=== PATIENT | female | born 1980 | race Caucasian/White ===

== ENCOUNTER 2016-10-29 21:22 | Inpatient (IN) | payer OTHER ==
[~2016-10-29] VITALS: Ht 160 cm; Wt 78.0 kg
[2016-10-29 21:51] VITALS: Ht 160 cm; Wt 78.0 kg
[2016-10-29 21:52] VITALS: BP 133/73; PULSE 97; RESP 19
[2016-10-29] MEDS ORDERED: IBUPROFEN 600 MG TAB PO PRN (22:00)
[2016-10-29] MEDS ORDERED: LACTATED RINGER'S 1,000 ML IV PRN (22:00)
[2016-10-29] MEDS ORDERED: BUTORPHANOL 2 MG INJ IV PRN (22:00)
[2016-10-29] MEDS ORDERED: OXYTOCIN 30 UNITS/LR 500 ML IV PRN (22:00)
[2016-10-29] MEDS ORDERED: OXYTOCIN 30 UNITS/LR 500 ML IV SCH (22:00)
[2016-10-29] MEDS ORDERED: METHYLERGONOVINE 0.2 MG INJ IM PRN (22:00)
[2016-10-29] MEDS ORDERED: MISOPROSTOL 200 MCG TAB PR PRN (22:00)
[2016-10-29] MEDS ORDERED: CARBOPROST 250 MCG INJ IM PRN (22:00)
[2016-10-29] MEDS ORDERED: LIDOCAINE 1% (MPF) 30 ML INJ INJ PRN (22:00)
--- NOTE | 2016-10-29 23:02 | HP ---
Date/Time of Note Date/Time of Note DATE: 10/29/16 TIME: 22:57 OB - History Hx of Present Free Text/Dictation 36 years old with care at [facility] and at 40 weeks and 3 days ( Post date), presented in active labor. records available. GBS negative,. uncomplicated course. History of x 3. 1 SAB, 1 TAB,1 Ectopic , s/p unilateral salpingectomy MAIDA: 10/25/2016 Estimated Due Date: Oct 25, 2016 : 7 Para: 3 Spontaneous : 1 Therapeutic : 1 Care: Good Care Obstetrical Complications: None Medical Complications: None Past Family/Social History * Past Medical, Surgical, Family and Obstetric Histories reviewed from chart. Blood Type: O+ Rubella: immune RPR/VDRL: Negative GBS Status: Negative HBsAG: Negative OB Admission Exam Vital Signs Vital Signs Vital Signs Date Time Temp Pulse Resp B/P Pulse Ox O2 Delivery O2 Flow Rate FiO2 10/29/16 21:52 98.1 97 19 133/73 Room Air Physical Exam HEENT: WNL Heart: Rhythm Normal Lungs: Clear Abdomen: WNL Extremities: Normal Cervical Dilatation: 4cm Effacement: 75% Station: -1 Membranes: Intact Heart Rate: 130's Accelerations: Accelerations Present Decelerations: No Decelerations Varibility: Moderate Intensity: Moderate OB Assessment/Plan Reason for admission: active labor Other Assessment: Post date GBS negative Desires Epidural Plan: Expectant Management Other plan: Admission Epidural for pain control Anticipate SARAH HENLEY MD Oct 29, 2016 23:02
--- NOTE | 2016-10-29 23:22 | TRIAGE ---
OB Triage Datetime Report Generated by CPN: 10/29/2016 23:22 Datetime: 10/29/2016 23:00 Labor Evaluation Frequency: 1.5-6 Monitor Mode: External Duration (sec)2399: 50-90 Quality: Mild Pattern: Normal: <= 5 Contractions in 10 Minutes Resting Tone [place]: Relaxed Heart Rate FHR Baseline Rate: 150 Monitor Mode: External US Variability: Moderate 6-25 bpm Accelerations: Prolonged Decelerations: None Category: Category I Datetime: 10/29/2016 22:00 Labor Evaluation Frequency: 1-6 Monitor Mode: External Duration (sec)2399: 40-90 Quality: Mild Pattern: Normal: <= 5 Contractions in 10 Minutes Resting Tone [place]: Relaxed Heart Rate FHR Baseline Rate: 135 Monitor Mode: External US Variability: Moderate 6-25 bpm Accelerations: 15X15 Decelerations: None Category: Category I Pain Assessment Pain Scale: 8 Pain Presence: Intermittent Pain Type: Cramping Pain Location: Abdomen Datetime: 10/29/2016 21:48 Membrane Status: Intact Datetime: 10/29/2016 21:36 Time of Arrival: 10/29/2016 21:18 EGA: 40.4 Arrived By: Wheelchair Arrived From: Home Chief Complaint: CONTRACTIONS Movement: Present Contractions: Regular Time Contractions Began: 10/29/2016 18:00 Contractions: Q3-5 Rupture of Membranes: Denies Vaginal Bleeding: None Vaginal Discharge: Denies Recent Sexual Intercouse: Denies Abdominal Trauma: Not Applicable Patient Complaints: Contractions Time Provider Notified: 10/29/2016 21:47 Provider Notified: ARDALAN Initial Plan: CEFM, SVE Datetime: 10/29/2016 21:26 Vaginal Exam Dilatation (cms): 3.5 Effacement (%): 80 Station: -1 Exam By: BE Vaginal Bleeding: None Cervix, Consistency: Soft Cervix, Position: Midposition Presentation 'A': Cephalic Datetime: 10/29/2016 21:25 Stage of : OB Triage Assessment Type: Triage Maternal Assessment Level of Consciousness: Fully Conscious DTR's/Clonus: DTRs 2+; No Clonus Headache: Denies Blurred Vision: No Respiratory Effort: Unlabored; Regular Rhythm; Equal Expansion Breath Sounds, Left: Clear and Equal Breath Sounds, Right: Clear and Equal Nausea/Vomiting: Denies RUQ Epigastric Pain: Denies Facial Edema: None Temperature Route: Axillary Fall Risk Assessment History of Falling: (0) No Secondary Diagnosis: (0) No Ambulatory Aid: (0) Bedrest/Nurse Assist IV Therapy: (0) No Gait: (0) Normal/Bedrest/Immobile Mental Status: (0) Oriented to Own Ability Fall Score: 0 Fall Risk Score Definition: No Risk: No action required Datetime: 10/26/2016 23:30 EGA: 40.1 Fall Score: 0 Fall Risk Score Definition: No Risk: No action required
[2016-10-29] MEDS: LACTATED RINGER'S 1,000 ML IV SCH (23:35)
[2016-10-29 23:59] LABS: INR 0.83; PROTIME 11.4 Sec (12.2-14.2); PT RATIO 0.9
[2016-10-30] VITALS (9 sets, daily range): BP systolic 94–121; BP diastolic 52–70; PULSE 63–88; RESP 18–20
[2016-10-30] LABS: PARTIAL THROMBOPLASTIN TIME 26.3 Sec (25.0-35.0)
[2016-10-30 00:33] LABS: BASOPHIL # 0.1 10^3/ul (0.0-0.1); BASOPHILS % 0.8 % (0.0-2.0); EOSINOPHILS # 0.1 10^3/ul (0.0-0.5); EOSINOPHILS % 0.6 % (0.0-7.0); HEMATOCRIT 30.9 % (37.0-47.0); LYMPHOCYTES # 2.1 10^3/ul (0.8-2.9); LYMPHOCYTES % 20.9 % (15.0-51.0); MEAN CORPUSCULAR HEMOGLOBIN 26.7 pg (29.0-33.0); MEAN CORPUSCULAR HGB CONC 32.5 g/dl (32.0-37.0); MEAN CORPUSCULAR VOLUME 82.3 fl (82.0-101.0); MEAN PLATELET VOLUME 10.9 fl (7.4-10.4); MONOCYTE # 0.6 10^3/ul (0.3-0.9); MONOCYTES % 5.7 % (0.0-11.0); NEUTROPHIL # 7.1 10^3/ul (1.6-7.5); PLATELET COUNT 231 10^3/UL (140-440); RED BLOOD COUNT 3.76 10^6/ul (4.20-5.40); RED CELL DISTRIBUTION WIDTH 14.6 % (11.5-14.5); UNCORRECTED WBC 9.9 10^3/ul (4.8-10.8); WHITE BLOOD COUNT 9.9 10^3/ul (4.8-10.8)
[2016-10-30 00:41] LABS: CONDITION 1; SUSPECT 1
[2016-10-30 00:42] LABS: LH ANALYZER COMMENTS 1
[2016-10-30] MEDS ORDERED: FENTAnyl 2MCG/ML-ROPIV 0.2% 100 ML ONE (02:01)
[2016-10-30] MEDS ORDERED: FENTAnyl 2MCG/ML-ROPIV 0.2% 100 ML BAG EPI SCH (03:00)
[2016-10-30] MEDS ORDERED: NALOXONE (0.4 MG/ML) INJ IV PRN (03:00)
[2016-10-30] MEDS: LACTATED RINGER'S 1,000 ML IV SCH ×2 (03:30→06:34)
[2016-10-30] MEDS: OXYTOCIN 30 UNITS/LR 500 ML IV SCH ×2 (07:52→08:15)
--- NOTE | 2016-10-30 07:54 | LDN ---
Date/Time of Note Date/Time of Note DATE: 10/30/16 TIME: 07:53 Delivery Summary Placenta Delivered: Spontaneously Meconium: none Perineum intact?: Yes Anesthesia type: Epidural Estimated blood loss: 200 Sponge & Needle done & correct: Yes Any foreign bodies felt in the: No Problems: Infant Delivery Information Sex Sex: male Apgars 1 Minute: 9 5 Minute: 9 Suctioning Nose & mouth suctioned at stewart: Yes Delee suction performed: Yes Umbilical Cord Umbilical cord with: 3 Vessels Cord presentations: no nuchal cord Cord Blood was obtained: Yes Mother & Baby Disposition Disposition Mom & Baby to Maternity; Good: Yes Baby to NICU: No GLADIS ARROYO M.D. Oct 30, 2016 07:54
--- NOTE | 2016-10-30 08:23 | LDN ---
Date/Time of Note Date/Time of Note DATE: 10/30/16 TIME: 08:17 Delivery Summary of a baby boy from oa position by dr oClunga ,shoulders delivered without difficulty rest of the baby,s body followed ,placenta spontaneous expulsion, inspected complete. Placenta Delivered: Spontaneously Meconium: none Perineum intact?: Yes Anesthesia type: Epidural Estimated blood loss: 200 Sponge & Needle done & correct: Yes All needle counts correct: Yes Any foreign bodies felt in the: No Problems: AMISH VILLASEÑOR MD Oct 30, 2016 08:23
--- NOTE | 2016-10-30 08:38 | DELSUM ---
Delivery Summary A-C Datetime Report Generated by CPN: 10/30/2016 08:37 DELIVERY PERSONNEL Operations Administrative Assistant: [place], May MATERNAL INFORMATION Delivery Anesthesia: Epidural Medications in Delivery: LR WITH 30 UNITS OF PITOCIN Estimated Blood Loss (ml): 200 Placenta Cultured: No Maternal Complications: None LABOR SUMMARY EDC: 10/25/2016 00:00 No. Babies in Womb: 1 Attempted: No Labor Anesthesia: Epidural LABOR INFORMATION Reason for Induction: Not Applicable Onset of Labor: 10/29/2016 18:00 Complete Dilatation: 10/30/2016 06:59 Oxytocin: N/A Group B Beta Strep: Negative Antibiotics # of Doses: 0 Antibiotics Time of Last Dose: 0 Steroids Given: None Reason Steroids Not Administered: Not Applicable MEMBRANES Membranes Rupture Method: Spontaneous Rupture of Membranes: 10/30/2016 03:40 Length of Rupture (hr): 4.07 Amniotic Fluid Color: Clear Amniotic Fluid Amount: Moderate Amniotic Fluid Odor: Normal STAGES OF LABOR Stage 1 hr: 12 Stage 1 min: 59 Stage 2 hr: 0 Stage 2 min: 45 Stage 3 hr: 0 Stage 3 min: 2 Total Time in Labor hr: 13 Total Time in Labor min: 46 VAGINAL DELIVERY Episiotomy: None Laceration Extension: N/A Laceration Type: None Laceration Repair: Not Applicable Initial Vag Sponge Count: 20 Final Vag Sponge Count: 20 Initial Vag Sharps Count: 1 Final Vag Sharps Count: 1 Sponge Count Correct: Yes Sharps Count Correct: Yes BABY A INFORMATION Infant Delivery Date/Time: 10/30/2016 07:44 Method of Delivery: Vaginal Born in Route : No : N/A Forceps: N/A Vacuum Extraction: N/A Shoulder Dystocia : No SHOULDER DYSTOCIA BABY A Infant Delivery Date/Time: 10/30/2016 07:44 PRESENTATION/POSITION BABY A Presentation: Cephalic Presentation: Cephalic Presentation: Cephalic Presentation: Cephalic Presentation: Cephalic Cephalic Presentation: Vertex Vertex Position: Left Occipital Anterior Breech Presentation: N/A PLACENTA INFORMATION BABY A Placenta Delivery Time : 10/30/2016 07:46 Placenta Method of Delivery: Spontaneous Placenta Status: Delivered SCORES BABY A Heart Rate 1 min: >100 bpm Resp Effort 1 min: Good Cry Reflex Irritability 1 min: Cough/Sneeze/Pulls Away Muscle Tone 1 min: Active Motion Color 1 min: Body [place], Extremit Blue Resuscitation Effort 1 min: Tactile Stimulation SCORE 1 MIN: 9 Heart Rate 5 min: >100 bpm Resp Effort 5 min: Good Cry Reflex Irritability 5 min: Cough/Sneeze/Pulls Away Muscle Tone 5 min: Active Motion Color 5 min: Body [place], Extremit Blue Resuscitation Effort 5 min: Tactile Stimulation SCORE 5 MIN: 9 INFANT INFORMATION BABY A Gestational Age at Delivery: 40.5 Gestational Status: Full Term- 39- 40.6 Weeks Outcome : Liveborn Infant Condition : Stable Sex: Male IDENTIFICATION/MEDS BABY A ID Band Number: [id number] Sensor Number: [id number] Sensor Location : Cord Clamp Vitamin K Given : Not Given Erythromycin Given: Not Given WEIGHT/LENGTH BABY A Birthweight (gm): 3775 Weight (lb): 8 Infant Weight (oz): 5 Infant Length (in): 19.50 Infant Length (cm): 49.53 CORD INFORMATION BABY A No. Cord Vessels: 3 Nuchal Cord : N/A Cord Blood Taken: Yes Infant Suction: Mouth; Nose ASSESSMENT BABY A Complications: None Physical Findings at Delivery: Within Normal Limits Respirations: Appears Normal Shopping Inspector/ALS Called : No Care By: NASIMA ESCOBEDO Transferred To: Remains with Mother
[2016-10-30] MEDS ORDERED: LACTATED RINGER'S 1,000 ML IV* SCH (09:53)
[2016-10-30] MEDS ORDERED: ZOLPIDEM 5 MG TAB PO PRN (10:00)
[2016-10-30] MEDS ORDERED: WITCH HAZEL/GLYCERIN PAD PR PRN (10:00)
[2016-10-30] MEDS ORDERED: SENNA/DOCUSATE NA (8.6MG/50MG) TAB PO PRN (10:00)
[2016-10-30] MEDS ORDERED: OXYTOCIN 30 UNITS/LR 500 ML IV PRN (10:00)
[2016-10-30] MEDS ORDERED: METHYLERGONOVINE 0.2 MG INJ IM PRN (10:00)
[2016-10-30] MEDS ORDERED: LANOLIN 7 GM TUBE TOP PRN (10:00)
[2016-10-30] MEDS ORDERED: CARBOPROST 250 MCG INJ IM PRN (10:00)
[2016-10-30] MEDS ORDERED: BENZOCAINE 20% 56 ML SPRAY TOP PRN (10:00)
[2016-10-30] MEDS ORDERED: OXYCODONE/ASPIRIN (4.88/325) TAB PO PRN (10:00)
[2016-10-30] MEDS ORDERED: MISOPROSTOL 200 MCG TAB PR PRN (10:00)
[2016-10-30] MEDS: IBUPROFEN 600 MG TAB PO SCH ×3 (12:19→23:57)
[2016-10-30] MEDS: SENNA/DOCUSATE NA (8.6MG/50MG) TAB PO SCH (21:08)
[2016-10-31 00:05] VITALS: BP 105/58; PULSE 68; RESP 19
[2016-10-31 04:00] VITALS: BP 92/63; PULSE 62; RESP 19
[2016-10-31] MEDS: IBUPROFEN 600 MG TAB PO SCH ×4 (05:30→23:42)
[2016-10-31 07:37] LABS: BASOPHILS % 0.5 % (0.0-2.0); EOSINOPHILS # 0.1 10^3/ul (0.0-0.5); EOSINOPHILS % 0.9 % (0.0-7.0); HEMATOCRIT 24.1 % (37.0-47.0); HEMOGLOBIN 7.8 g/dl (12.0-16.0); LYMPHOCYTES # 2.3 10^3/ul (0.8-2.9); LYMPHOCYTES % 25.8 % (15.0-51.0); MEAN CORPUSCULAR HEMOGLOBIN 26.8 pg (29.0-33.0); MEAN CORPUSCULAR HGB CONC 32.2 g/dl (32.0-37.0); MEAN CORPUSCULAR VOLUME 83.2 fl (82.0-101.0); MEAN PLATELET VOLUME 10.2 fl (7.4-10.4); MONOCYTE # 0.4 10^3/ul (0.3-0.9); MONOCYTES % 4.2 % (0.0-11.0); NEUTROPHIL # 6.1 10^3/ul (1.6-7.5); NEUTROPHILS % 68.6 % (39.0-77.0); PLATELET COUNT 153 10^3/UL (140-440); RED CELL DISTRIBUTION WIDTH 14.6 % (11.5-14.5); UNCORRECTED WBC 8.9 10^3/ul (4.8-10.8); WHITE BLOOD COUNT 8.9 10^3/ul (4.8-10.8)
[2016-10-31 07:42] LABS: CONDITION 1; LH ANALYZER COMMENTS 1
[2016-10-31 08:00] VITALS: BP 97/62; PULSE 73; RESP 18
[2016-10-31] MEDS ORDERED: INFLUENZA VIRUS VACCINE 0.5 ML (DISPENSING) IM* ONE (09:00)
[2016-10-31] MEDS: SENNA/DOCUSATE NA (8.6MG/50MG) TAB PO SCH ×2 (09:03→20:36)
--- NOTE | 2016-10-31 13:56 | PN ---
Date/Time of Note Date/Time of Note DATE: 10/31/16 TIME: 13:55 OB Subjective Subjective Subjective day 1 Vital sign is stable afebrile abdomen soft uterus firm lochia normal extremity normal Laboratory Tests Test 10/31/16 06:10 Basophils # 0.010^3/ul Basophils % 0.5% Blood Morphology Comment Eosinophils # 0.110^3/ul Eosinophils % 0.9% Hematocrit 24.1% Hemoglobin 7.8g/dl Lymphocytes # 2.310^3/ul Lymphocytes % 25.8% Mean Corpuscular Hemoglobin 26.8pg Mean Corpuscular Hemoglobin Concent 32.2g/dl Mean Corpuscular Volume 83.2fl Mean Platelet Volume 10.2fl Monocytes # 0.410^3/ul Monocytes % 4.2% Neutrophils # 6.110^3/ul Neutrophils % 68.6% Nucleated Red Blood Cells # 0.010^3/ul Nucleated Red Blood Cells % 0.0/100WBC Platelet Count 57405^3/UL Red Blood Count 2.9010^6/ul Red Cell Distribution Width 14.6% White Blood Count 8.910^3/ul Current Medications Medications (Trade) Dose Ordered Sig/Edenilson Route PRN Reason Start Time Stop Time Status Last Admin Dose Admin Lactated Ringer's (Lr) 1,000 ml @ 125 mls/hr Q8H IV 10/29/16 21:54 10/30/16 09:55 DC 10/30/16 06:34 Butorphanol Tartrate (Stadol) 2 mg Q2H PRN IV PAIN 10/29/16 22:00 10/30/16 09:55 DC 10/30/16 00:45 Lidocaine 30 ml 30 ml ONCE PRN INJ EPISIOTOMY/TEARING 10/29/16 22:00 10/30/16 09:55 DC Oxytocin/Lactated Ringer's 500 ml @ 125 mls/hr ONCE -MAY REPEAT X1 IV 10/29/16 22:00 10/30/16 09:55 DC 10/30/16 08:15 Oxytocin/Lactated Ringer's 500 ml @ 125 mls/hr ONCE IV 10/29/16 22:00 10/30/16 09:55 DC Ibuprofen 600 mg 600 mg ONCE PRN PO Mild Pain (Pain Score 1-3) 10/29/16 22:00 10/30/16 09:55 DC Lactated Ringer's 1,000 ml @ 2,000 mls/hr Q30M PRN IV PRE-EPIDURAL BOLUS 10/29/16 22:00 10/30/16 09:55 DC Oxytocin/Lactated Ringer's 500 ml @ 0 mls/hr ONCE PRN IV For Hemorrhage Management 10/29/16 22:00 10/30/16 09:55 DC Methylergonovine Maleate (Methergine) 0.2 mg ONCE PRN IM VAGINAL BLEEDING 10/29/16 22:00 10/30/16 09:56 DC Carboprost Tromethamine (Hemabate) 250 mcg ONCE PRN IM VAGINAL BLEEDING 10/29/16 22:00 10/30/16 09:56 DC Misoprostol 1000 mcg 1,000 mcg ONCE PRN DE VAGINAL BLEEDING 10/29/16 22:00 10/30/16 09:56 DC Fentanyl/ Ropivacaine 100 ml @ STK-MED ONCE .ROUTE 10/30/16 02:01 10/30/16 02:02 DC Naloxone HCl (Narcan) 0.1 mg Q2M PRN IV FOR RESP RATE 8 OR LESS 10/30/16 03:00 10/30/16 09:56 DC Fentanyl/ Ropivacaine 100 ml 100 ml EPIDURAL INFUSION EPI 10/30/16 03:00 10/30/16 09:56 DC Lactated Ringer's (Lr) 1,000 ml @ 125 mls/hr Q8H IV* 10/30/16 09:53 10/30/16 18:31 DC 10/30/16 12:14 Ibuprofen (Motrin) 600 mg Q6 PO 10/30/16 12:00 10/31/16 11:51 Oxycodone/Aspirin (Percodan) 2 tab Q3H PRN PO PAIN LEVEL 6-10 10/30/16 10:00 Zolpidem Tartrate (Ambien) 5 mg QHS PRN PO INSOMNIA 10/30/16 10:00 Senna/Docusate Sodium (Senokot-S) 1 tab BID PO 10/30/16 21:00 10/31/16 09:03 Senna/Docusate Sodium (Senokot-S) 1 tab BID PRN PO CONSTIPATION 10/30/16 10:00 Witch Tonya/ Glycerin (Tucks Pads) 1 pad BEDSIDE MEDICATION PRN DE HEMORRHOID/EPISIOTMY PAIN 10/30/16 10:00 10/30/16 12:19 Benzocaine (Dermoplast [place]) 1 spray BEDSIDE MEDICATION PRN TOP HEMORRHOID/EPISIOTMY PAIN 10/30/16 10:00 10/30/16 12:20 Lanolin (Hxt-F-Qrkgvv) 1 applic BEDSIDE MEDICATION PRN TOP BEDSIDE FOR INGRID TO NIPPLES 10/30/16 10:00 10/30/16 12:21 Diphtheria/ Tetanus/Acell Pertussis 0.5 ml 0.5 ml ONCE ONCE IM* 11/01/16 09:00 11/01/16 09:01 Oxytocin/Lactated Ringer's 500 ml @ 0 mls/hr ONCE PRN IV For Hemorrhage Management 10/30/16 10:00 Methylergonovine Maleate (Methergine) 0.2 mg ONCE PRN IM VAGINAL BLEEDING 10/30/16 10:00 Carboprost Tromethamine (Hemabate) 250 mcg ONCE PRN IM VAGINAL BLEEDING 10/30/16 10:00 Misoprostol (Cytotec) 1,000 mcg ONCE PRN DE VAGINAL BLEEDING 10/30/16 10:00 Influenza Virus Vaccine (Fluzone) 0.5 ml ONCE ONCE IM* 10/31/16 09:00 10/31/16 09:01 AMISH GROVER MD Oct 31, 2016 13:56
[2016-10-31 15:40] VITALS: BP 106/59; PULSE 73; RESP 18
[2016-10-31 20:15] VITALS: BP 98/59; PULSE 77; RESP 18
[2016-11-01 04:10] VITALS: BP 94/58; PULSE 60; RESP 16
[2016-11-01] MEDS: IBUPROFEN 600 MG TAB PO SCH ×2 (05:38→12:00)
[2016-11-01 07:45] VITALS: BP 98/67; PULSE 83; RESP 20
[2016-11-01] MEDS: SENNA/DOCUSATE NA (8.6MG/50MG) TAB PO SCH (09:00)
[2016-11-01] MEDS ORDERED: DIPHTH/TET/ACEL PERTUSS (ADULT) 0.5 ML VIAL IM* ONE (09:00)
--- NOTE | 2016-11-01 10:49 | PD.PPDC ---
ACCREDITATION COORDINATOR Discharge Instruction Condition Patient Condition: Good Diet Diet: Resume Regular Diet Activity/Restrictions Activity: Normal Activity May Shower Restrictions: No Exercising No Lifting No Driving No Sexual Activity Nothing in the Vagina No [place] No Tampons, douche Follow-up Follow-up with Physician: 2, Week/Weeks Return to clinic for RECRUITING AND SELECTION CONSULTANT Instructions: Chills Worsening abdominal pain More than 2 pads per hour OB Instructions: Depression AMISH VILLASEÑOR MD Nov 01, 2016 10:49
--- NOTE | 2016-11-01 10:51 | DS ---
Date/Time of Note Date/Time of Note DATE: 11/01/16 TIME: 10:49 Obstetrical Discharge Record Final Diagnosis Final Diagnosis: Term delivered Vaginal Delivery Obstetrical Delivery: Spontaneous Condition on Discharge Physical Assessment Last Vitals: Day 2 post normal vaginal delivery Afebrile vital sign a stable abdomen soft uterus firm lochia normal extremity normal patient discharged home with follow-up instruction recommended to make appointment to clinic to be seen in 2 weeks Voiding: Yes Bowel Movement: Yes Breast: Soft, non-tender, Filling Fundus: Firm Calf Tenderness: No Patient Condition: Good AMISH VILLASEÑOR MD Nov 01, 2016 10:51
== END 2016-11-01 15:55 | disposition home or self-care (01) | DRG 775 ==
LOC: OBT 21:22 → L-D 21:23 → OBT 21:47 → L-D 21:47 → PP1 10-30 09:46
PROVIDERS: ADMIT Obstetrics & Gynecology; ATTEND Obstetrics & Gynecology
PROC: 10E0XZZ Delivery of Products of Conception, External Approach (ICD-10-PCS; principal; 2016-10-30)
DX: O80 Encounter for full-term uncomplicated delivery (principal); Z37.0 Single live birth; Z3A.40 40 weeks gestation of pregnancy
CPT/HCPCS: 62319; 85025; 85610; 85730; 86592; 86900; 86901; 87340; 90686; 90715; G0463; J2590; J3010; J7120

== ENCOUNTER 2017-05-31 18:00 | Emergency (ER) | payer OTHER ==
[~2017-05-31] VITALS: Ht 160 cm; Wt 64.5 kg
[2017-05-31 18:23] VITALS: Ht 160 cm; Wt 64.5 kg
--- NOTE | 2017-05-31 19:24 | ERD ---
ER Documentation Chief Complaint Date/Time DATE: 05/31/17 TIME: 19:23 Chief Complaint 14 WEEKS WITH VAGINAL BLEEDING FOR THREE DAYS HPI 37-year-old female who is with history of left-sided ectopic leading to oophorectomy a left side presents with right-sided pelvic pain with vaginal bleeding for the past 2-3 days. She reports that her last menstrual period was on February 21, 2017. She has mild pain that is localized, sharp on the right side, describes light bleeding, heavier today. She has not had any fevers, chills, dizziness, syncope. ROS All systems reviewed and are negative except as per history of present illness. Medications Home Meds No Active Prescriptions or Reported Meds Allergies Allergies: Coded Allergies: No Known Allergy (Verified , 10/29/16) PMhx/Soc Anesthesia Reaction: No Hx Miscellaneous Medical Probl: Yes (MISCARRIAGE) Hx Alcohol Use: No Hx Substance Use: No Hx Tobacco Use: No Physical Exam Vitals Vital Signs Date Time Temp Pulse Resp B/P Pulse Ox O2 Delivery O2 Flow Rate FiO2 05/31/17 18:23 98.7 74 18 105/69 100 Physical Exam \General: Well-developed, well-nourished. The patient appears in no acute distress. HEENT: Head is normocephalic, atraumatic. No scleral icterus. Neck: Supple. Nontender. Lungs: Clear to auscultation. Normal air movement. Heart: Regular rate and rhythm. S1 and S2 are normal. No murmurs, gallops, or rubs. Abdomen: Soft, nontender, nondistended. Bowel sounds are normoactive. Extremities: No clubbing or cyanosis. Normal pulses. Moving extremities x 4. No weakness. Neurologic: Alert and oriented 3. No focal deficits. Skin: Normal turgor. No rash or lesions. Result Diagram: 05/31/171929 Results 24 hrs Laboratory Tests Test 05/31/17 19:30 White Blood Count 8.410^3/ul Red Blood Count 4.2010^6/ul Hemoglobin 12.5g/dl Hematocrit 36.8% Mean Corpuscular Volume 87.6fl Mean Corpuscular Hemoglobin 29.8pg Mean Corpuscular Hemoglobin Concent 34.0g/dl Red Cell Distribution Width 12.9% Platelet Count 07480^3/UL Mean Platelet Volume 10.9fl Neutrophils % 62.3% Lymphocytes % 31.5% Monocytes % 4.3% Eosinophils % 1.2% Basophils % 0.5% Nucleated Red Blood Cells % 0.0/100WBC Neutrophils # 5.210^3/ul Lymphocytes # 2.610^3/ul Monocytes # 0.410^3/ul Eosinophils # 0.110^3/ul Basophils # 0.010^3/ul Nucleated Red Blood Cells # 0.010^3/ul Urine Color YELLOW Urine Clarity CLEAR Urine pH 5.0 Urine Specific [place] 1.027 Urine Ketones TRACEmg/dL Urine Nitrite NEGATIVEmg/dL Urine Bilirubin NEGATIVEmg/dL Urine Urobilinogen NEGATIVEmg/dL Urine Leukocyte Esterase NEGATIVELeu/ul Urine Microscopic RBC 0/HPF Urine Microscopic WBC 0/HPF Urine Mucus FEW/HPF Urine Hemoglobin 2+mg/dL Urine Glucose NEGATIVEmg/dL Urine Total Protein NEGATIVEmg/dl Beta HCG, Quantitative 855.2mIU/ml Current Medications Medications (Trade) Dose Ordered Sig/Edenilson Route PRN Reason Start Time Stop Time Status Last Admin Dose Admin Acetaminophen (Tylenol Tab) 650 mg ONCE ONCE PO 05/31/17 19:30 05/31/17 19:31 DC 05/31/17 19:28 Patient: JOSE OGLESBY : 1980 Age: 37 Sex: F MR #: [id number] DOS: 05/31/171910 Ordering MD: ABDIRIZAK YUN PA-C Location: [facility] Room/Bed: PROCEDURE: US OB. CLINICAL INDICATION: Vaginal bleeding. TECHNIQUE: Multiple transabdominal sonographic images of the pelvis were obtained. COMPARISON: None. FINDINGS: The uterus is anteverted in position. There is a single live intrauterine . A small pole and yolk sac are present. There is no detectable heart motion within the embryonic pole. CRL is 4.69 cm (11 weeks 3 days). The cervix is closed measuring approximately 3.5 cm in length. Prominent myometrial tissue is seen immediately proximal to the internal cervical os and may reflect placental tissue. There is no free pelvic fluid. The right ovary is not seen. The left ovary measures 2.9 x 1.8 x 2.3 cm (6.4 cc ). IMPRESSION: Single intrauterine without detectable heart motion. Imaging findings are most suggestive of a failed early . Correlate with serial quantitative beta HCGs and follow-up pelvic ultrasound. RPTAT: HLST .Crystal Lomas MD, MD Date Time Electronically viewed and signed by .Crysatl Lomas MD, on 05/31/2017 20:34 .T/ Procedures/MDM ED course: She was given Tylenol for pain. Medical decision makin-year-old female, presents with her sixth , has 5 live births and one with ectopic presenting with vaginal bleeding and right-sided pelvic pain for the past 3 days, presents with a intrauterine at 11 weeks without any heart tones, consistent with likely demise. This is her first ultrasound, she comes in with vaginal bleeding. There is no evidence of ectopic . She was given ER return precautions, otherwise she was advised that she may miscarry otherwise she is to follow-up with [facility] [facility] [facility] for a D&C. She is hemodynamically stable, no signs of endometritis, UTI, pyelonephritis, cervicitis. Patient's blood type is O+, no indication for RhoGam. Departure Diagnosis: Primary Impression: Threatened Condition: Stable ABDIRIZAK YUN PA-C May 31, 2017 19:24
[2017-05-31] MEDS ORDERED: ACETAMINOPHEN 325 MG TAB PO ONE (19:30)
[2017-05-31 19:39] LABS: BASOPHILS % 0.5 % (0.0-2.0); EOSINOPHILS # 0.1 10^3/ul (0.0-0.5); EOSINOPHILS % 1.2 % (0.0-7.0); HEMATOCRIT 36.8 % (37.0-47.0); HEMOGLOBIN 12.5 g/dl (12.0-16.0); LYMPHOCYTES # 2.6 10^3/ul (0.8-2.9); LYMPHOCYTES % 31.5 % (15.0-51.0); MEAN CORPUSCULAR HEMOGLOBIN 29.8 pg (29.0-33.0); MEAN CORPUSCULAR VOLUME 87.6 fl (82.0-101.0); MEAN PLATELET VOLUME 10.9 fl (7.4-10.4); MONOCYTE # 0.4 10^3/ul (0.3-0.9); MONOCYTES % 4.3 % (0.0-11.0); NEUTROPHIL # 5.2 10^3/ul (1.6-7.5); NEUTROPHILS % 62.3 % (39.0-77.0); PLATELET COUNT 244 10^3/UL (140-415); RED CELL DISTRIBUTION WIDTH 12.9 % (11.5-14.5); WHITE BLOOD COUNT 8.4 10^3/ul (4.8-10.8)
[2017-05-31 19:45] LABS: ADD UMIC YES; UR ASCORBIC ACID NEGATIVE (NEGATIVE); UR BILIRUBIN (Dip) NEGATIVE (NEGATIVE); UR BLOOD (Dip) 2+ mg/dL (NEGATIVE); UR CLARITY CLEAR (CLEAR); UR COLOR YELLOW (YELLOW); UR GLUCOSE (Dip) NEGATIVE (NEGATIVE); UR KETONES (Dip) TRACE mg/dL (NEGATIVE); UR LEUKOCYTE ESTERASE (Dip) NEGATIVE Leu/ul (NEGATIVE); UR MUCUS FEW /HPF (NONE SEEN); UR NITRITE (Dip) NEGATIVE (NEGATIVE); UR RBC 0 /HPF (0-5); UR SPECIFIC GRAVITY (Dip) 1.027 (1.003-1.030); UR TOTAL PROTEIN (Dip) NEGATIVE (NEGATIVE); UR UROBILINOGEN (Dip) NEGATIVE (NEGATIVE)
--- NOTE | 2017-05-31 20:35 | RADRPT ---
PROCEDURE: US OB. CLINICAL INDICATION: Vaginal bleeding. TECHNIQUE: Multiple transabdominal sonographic images of the pelvis were obtained. COMPARISON: None. FINDINGS: The uterus is anteverted in position. There is a single live intrauterine . A small p ole and yolk sac are present. There is no detectable heart motion within the embryonic pole. C RL is 4.69 cm (11 weeks 3 days). The cervix is closed measuring approximately 3.5 cm in length. Pro minent myometrial tissue is seen immediately proximal to the internal cervical os and may reflect pl acental tissue. There is no free pelvic fluid. The right ovary is not seen. The left ovary measures 2.9 x 1.8 x 2.3 cm (6.4 cc). IMPRESSION: Single intrauterine without detectable heart motion. Imaging findings are most sugg estive of a failed early . Correlate with serial quantitative beta HCGs and follow-up pelv ic ultrasound. RPTAT: HLST .Crystal Lomas MD, MD Date Time Electronically viewed and signed by .Crystal Lomas MD, on 05/31/2017 20:34 .T/
== END 2017-05-31 21:17 | disposition home or self-care (01) ==
LOC: FTE 18:00
DX: O20.0 Threatened abortion (principal); Z3A.11 11 weeks gestation of pregnancy
CPT/HCPCS: 36415; 76801; 81001; 84702; 85025; 86900; 86901; Z7502; Z7610

== ENCOUNTER 2017-06-03 00:52 | Inpatient (IN) | payer OTHER ==
[2017-06-03] VITALS (36 sets, daily range): BP systolic 79–137; BP diastolic 42–81; PULSE 64–120; RESP 14–31; Ht 160 cm; Wt 68.0 kg
[~2017-06-03] VITALS: Ht 160 cm; Wt 68.0 kg
[2017-06-03] MEDS ORDERED: SOD CHLORIDE 0.9% 500 ML IV STA (01:09)
[2017-06-03] MEDS ORDERED: SOD CHLORIDE 0.9% 1,000 ML IV STA (01:09)
[2017-06-03] MEDS ORDERED: ONDANSETRON 4 MG INJ IV STA (01:12)
[2017-06-03] MEDS ORDERED: morphine 2 MG INJ IV ONE (01:30)
[2017-06-03 01:40] LABS: BASOPHILS % 0.4 % (0.0-2.0); EOSINOPHILS # 0.2 10^3/ul (0.0-0.5); EOSINOPHILS % 1.4 % (0.0-7.0); HEMATOCRIT 33.4 % (37.0-47.0); HEMOGLOBIN 11.4 g/dl (12.0-16.0); LYMPHOCYTES # 4.8 10^3/ul (0.8-2.9); LYMPHOCYTES % 43.7 % (15.0-51.0); MEAN CORPUSCULAR HEMOGLOBIN 30.2 pg (29.0-33.0); MEAN CORPUSCULAR HGB CONC 34.1 g/dl (32.0-37.0); MEAN CORPUSCULAR VOLUME 88.4 fl (82.0-101.0); MONOCYTE # 0.6 10^3/ul (0.3-0.9); MONOCYTES % 5.4 % (0.0-11.0); NEUTROPHIL # 5.4 10^3/ul (1.6-7.5); NEUTROPHILS % 48.7 % (39.0-77.0); PLATELET COUNT 259 10^3/UL (140-415); RED BLOOD COUNT 3.78 10^6/ul (4.20-5.40); RED CELL DISTRIBUTION WIDTH 12.6 % (11.5-14.5)
[2017-06-03 02:03] LABS: INR 0.92; PARTIAL THROMBOPLASTIN TIME 25.2 Sec (25.0-35.0); PROTIME 12.4 Sec (12.2-14.2)
[2017-06-03 02:05] LABS: ALBUMIN 3.7 g/dl (3.3-4.9); ALBUMIN/GLOBULIN RATIO 1.19; BILIRUBIN,INDIRECT 0.1 mg/dl (0-1.1); BILIRUBIN,TOTAL 0.1 mg/dl (0.2-1.3); CREATININE 0.73 mg/dl (0.44-1.00); POTASSIUM 3.6 mmol/L (3.5-5.1); TOTAL PROTEIN 6.8 g/dl (6.1-8.1)
[2017-06-03] MEDS ORDERED: HYDROmorphONE 1 MG/ML SYG IV STA (02:35)
[2017-06-03 02:59] LABS: HEMATOCRIT 30.2 % (37.0-47.0); HEMOGLOBIN 9.9 g/dl (12.0-16.0)
--- NOTE | 2017-06-03 04:28 | ERA ---
ER Documentation Chief Complaint Date/Time DATE: 06/03/17 TIME: 04:23 Chief Complaint DEMISE, HEAVY VAGINAL BLEEDING TODAY HPI This 37-year-old female with a previous intrauterine comes emergency room after she passed the fetus at home and buried it. Since then she has been passing large amount of blood and clots. She feels very weak lightheaded dizzy and has intermittent crampy pain in her pelvic area. She previously had had care at this facility. ROS All systems reviewed and are negative except as per history of present illness. Medications Home Meds No Active Prescriptions or Reported Meds Allergies Allergies: Coded Allergies: No Known Allergy (Verified , 10/29/16) PMhx/Soc Medical and Surgical Hx: pt denies Medical Hx, pt denies Surgical Hx Anesthesia Reaction: No Hx Miscellaneous Medical Probl: Yes (MISCARRIAGE, incomplete AB dx'd 05/31/17) Hx Alcohol Use: No Hx Substance Use: No Hx Tobacco Use: No Smoking Status: Never smoker Physical Exam Vitals Vital Signs Date Time Temp Pulse Resp B/P Pulse Ox O2 Delivery O2 Flow Rate FiO2 06/03/17 03:45 96 22 93/69 06/03/17 03:30 84 16 112/76 100 Room Air 06/03/17 03:30 79 21 112/76 06/03/17 03:00 80 20 102/73 06/03/17 02:30 75 17 97/62 06/03/17 02:15 74 17 67/69 06/03/17 02:00 74 17 99/64 100 Room Air 06/03/17 01:45 69 17 96/56 100 Room Air 06/03/17 01:30 84 15 89/57 100 Room Air 06/03/17 01:25 81 19 92/60 100 Room Air 06/03/17 01:00 97.3 81 24 95 Physical Exam Const: [] Moderate distress, pale and ill-appearing Head: Atraumatic Eyes: Normal Conjunctiva ENT: Normal External Ears, Nose and Mouth. Neck: Full range of motion..~ No meningismus. Resp: Clear to auscultation bilaterally Cardio: Regular tachycardia, no murmurs Abd: Soft, non tender, non distended. Normal bowel sounds, pelvic exam, currently passing large clots. Speculum exam not done Skin: No petechiae or rashes Ext: No cyanosis, or edema Neur: Awake and alert and oriented 3, no focal deficits Psych: Normal Mood and Affect Result Diagram: 06/03/17 0247 06/03/17 0125 Results 24 hrs Laboratory Tests Test 06/03/17 01:25 06/03/17 02:47 White Blood Count 11.010^3/ul Red Blood Count 3.7810^6/ul Hemoglobin 11.4g/dl 9.9g/dl Hematocrit 33.4% 30.2% Mean Corpuscular Volume 88.4fl Mean Corpuscular Hemoglobin 30.2pg Mean Corpuscular Hemoglobin Concent 34.1g/dl Red Cell Distribution Width 12.6% Platelet Count 18873^3/UL Mean Platelet Volume 11.0fl Neutrophils % 48.7% Lymphocytes % 43.7% Monocytes % 5.4% Eosinophils % 1.4% Basophils % 0.4% Nucleated Red Blood Cells % 0.0/100WBC Neutrophils # 5.410^3/ul Lymphocytes # 4.810^3/ul Monocytes # 0.610^3/ul Eosinophils # 0.210^3/ul Basophils # 0.010^3/ul Nucleated Red Blood Cells # 0.010^3/ul Prothrombin Time 12.4Sec Prothrombin Time Ratio 1.0 INR International Normalized Ratio 0.92 Activated Partial Thromboplast Time 25.2Sec Sodium Level 140mmol/L Potassium Level 3.6mmol/L Chloride Level 102mmol/L Carbon Dioxide Level 22mmol/L Anion Gap 20 Blood Urea Nitrogen 18mg/dl Creatinine 0.73mg/dl Glucose Level 148mg/dl Calcium Level 9.0mg/dl Total Bilirubin 0.1mg/dl Direct Bilirubin 0.00mg/dl Indirect Bilirubin 0.1mg/dl Aspartate Amino Transf (AST/SGOT) 19IU/L Alanine Aminotransferase (ALT/SGPT) 18IU/L Alkaline Phosphatase 78IU/L Total Protein 6.8g/dl Albumin 3.7g/dl Globulin 3.10g/dl Albumin/Globulin Ratio 1.19 Current Medications Medications (Trade) Dose Ordered Sig/Edenilson Route PRN Reason Start Time Stop Time Status Last Admin Dose Admin Sodium Chloride 500 ml @ 500 mls/hr Q1H STAT IV 06/03/17 01:09 06/03/17 02:08 DC 06/03/17 01:25 Sodium Chloride (NS) 1,000 ml @ 1,000 mls/hr Q1H STAT IV 06/03/17 01:09 06/03/17 02:08 DC 06/03/17 01:25 Ondansetron HCl (Zofran Inj) 4 mg ONCE STAT IV 06/03/17 01:12 06/03/17 01:13 DC 06/03/17 01:25 Morphine Sulfate (morphine) 2 mg ONCE ONCE IV 06/03/17 01:30 06/03/17 01:31 DC 06/03/17 01:25 Hydromorphone HCl (Dilaudid) 0.5 mg ONCE STAT IV 06/03/17 02:35 06/03/17 02:38 DC 06/03/17 02:42 Procedures/MDM Incomplete with large amount of vaginal bleeding retained products of conception. Patient was hydrated with a liter and a half of IV fluid immediately. She was given morphine and Dilaudid for her pain. Blood pressure initially loaded rebound. Patient continued to pass large clots after which the bleeding slowed down. I spoke with Dr. Tatum, who had previously seen this patient and he came down in the emergency room. He is going to take her to the operating room for D&C after which he says he will handle her discharge. Patient was improved in the emergency room. She also been given 4 mg of Zofran. Pelvic ultrasound interpretation: Retained products of conception with thickened endometrium. Departure Diagnosis: Primary Impression: Incomplete with complication Additional Impressions: Retained products of conception Vaginal bleeding Hypotension Condition: Serious COLIN WALLACE Jun 03, 2017 04:28
--- NOTE | 2017-06-03 04:41 | RADRPT ---
PROCEDURE: US pelvis complete and transvaginal CLINICAL INDICATION: Vaginal bleeding with past products of conception. Probable miscarriage. TECHNIQUE: Tsai scale and color Doppler imaging of the pelvis was performed. Endovaginal scanning was performed for more detailed evaluation of the endometrium. The images were reviewed on a PACS workstation. COMPARISON: 05/31/2017 FINDINGS: The uterus measures 10.3 x 6.5 x 7.1 centimeters. The ovaries were not seen. The endometrial stripe measures 22 millimeters in thickness and is heterogeneously echogenic with slight color-flow within . No intrauterine gestation is seen.. No fibroids are seen. No free fluid was seen. IMPRESSION: Probable in progress with heterogeneous endometrial contents with some flow within. No int rauterine gestation is seen. Nonvisualization of the ovaries. RPTAT: [facility] Physician Logan Date Time Electronically viewed and signed by Physician Logan on 06/03/2017 04:40 YIFAN/
[2017-06-03] MEDS ORDERED: MIDAZOLAM 1 MG/ML 2 ML INJ ONE (05:22)
[2017-06-03] MEDS ORDERED: FENTAnyl 50 MCG/ML VIAL ONE (05:22)
[2017-06-03] MEDS ORDERED: PHENYLephrine (100 MCG/ML) 5ML SYG ONE ×2 (05:28→05:43)
[2017-06-03] MEDS ORDERED: OXYTOCIN 30 UNITS/LR 500 ML IV PRN (05:30)
[2017-06-03] MEDS ORDERED: MISOPROSTOL 200 MCG TAB PR PRN (05:30)
[2017-06-03] MEDS ORDERED: CARBOPROST 250 MCG INJ IM PRN (05:30)
[2017-06-03] MEDS ORDERED: METHYLERGONOVINE 0.2 MG INJ IM PRN (05:30)
[2017-06-03] MEDS ORDERED: LIDOCAINE 2% (SDV) 5 ML INJ ONE (05:46)
[2017-06-03] MEDS ORDERED: CEFAZOLIN 1 GM INJ ONE (05:46)
[2017-06-03] MEDS ORDERED: PROPOFOL 20 ML ONE (05:46)
[2017-06-03] MEDS ORDERED: ONDANSETRON 4 MG INJ ONE (05:50)
--- NOTE | 2017-06-03 06:03 | OPR ---
Date/Time of Note Date/Time of Note DATE: 06/03/17 TIME: 06:02 Operative Report Preoperative Diagnosis incomplete Postoperative Diagnosis incomplete Operation/Procedure Performed D&C&suction Surgeon: GLADIS ARROYO M.D. Anesthesia: general Estimated Blood Loss: 50 - 100 ml's Complications: None GLADIS ARROYO M.D. Jun 03, 2017 06:03
[2017-06-03 06:26] LABS: BASOPHILS % 0.2 % (0.0-2.0); EOSINOPHILS % 0.1 % (0.0-7.0); HEMATOCRIT 23.9 % (37.0-47.0); LYMPHOCYTES # 1.9 10^3/ul (0.8-2.9); LYMPHOCYTES % 14.2 % (15.0-51.0); MEAN CORPUSCULAR HEMOGLOBIN 29.7 pg (29.0-33.0); MEAN CORPUSCULAR HGB CONC 33.1 g/dl (32.0-37.0); MEAN CORPUSCULAR VOLUME 89.8 fl (82.0-101.0); MEAN PLATELET VOLUME 11.1 fl (7.4-10.4); MONOCYTE # 0.4 10^3/ul (0.3-0.9); MONOCYTES % 3.3 % (0.0-11.0); NEUTROPHIL # 10.8 10^3/ul (1.6-7.5); NEUTROPHILS % 81.7 % (39.0-77.0); PLATELET COUNT 193 10^3/UL (140-415); RED BLOOD COUNT 2.66 10^6/ul (4.20-5.40); RED CELL DISTRIBUTION WIDTH 12.8 % (11.5-14.5); WHITE BLOOD COUNT 13.2 10^3/ul (4.8-10.8)
[2017-06-03 06:33] LABS: HEMOGLOBIN 7.9 g/dl (12.0-16.0)
--- NOTE | 2017-06-03 06:43 | HP ---
DATE OF ADMISSION: 06/03/2017 HISTORY OF PRESENT ILLNESS: This is a 37-year-old, 6, para 4, admitted through the emergency room with vaginal bleeding and diagnosis of incomplete . The patient consented for D and C and suction. The risks and benefits were discussed. PAST MEDICAL HISTORY: Denies. PAST MEDICAL HISTORY: 1. Ectopic and salpingectomy. 2. History of 4 vaginal deliveries. ALLERGIES: NO KNOWN DRUG ALLERGIES. PHYSICAL EXAMINATION: VITAL SIGNS: Stable. GENERAL: Normal. ABDOMEN: Not tender, not distended. GENITOURINARY: There was around a 4-5 mL clot in the vaginal wall. The cervix was 2 cm open. ASSESSMENT AND PLAN: The patient was consented for dilation and curettage and suction. The risks and benefits were discussed. Alternatives discussed. The patient signed the consent and was taken to the operating room. Dictated By: Winston Crews MD /jess/montse /Document#: [id number]
[2017-06-03] MEDS ORDERED: SEVOFLURANE 15 MIN ONE (07:00)
--- NOTE | 2017-06-03 07:03 | OPR ---
DATE OF OPERATION: 06/03/2017 PREOPERATIVE DIAGNOSIS: Complete at around 7 to 8 weeks. POSTOPERATIVE DIAGNOSIS: Complete at around 7 to 8 weeks. PROCEDURE: D and C and suction. ATTENDING SURGEON: Winston Crews MD ANESTHESIOLOGIST: Dr. Briggs. ANESTHESIA: General. COMPLICATIONS: None. ESTIMATED BLOOD LOSS: Less than 100 cc. TECHNIQUE: The patient was taken to the operating room where general anesthesia was found to be adequate. The patient was placed in dorsolithotomy position. After prep and drape weighted speculum was placed inside the vaginal vault. Anterior the cervix was grasped with a single tooth tenaculum. There was productive conception hanging from the cervix that was grasped using a sponge forceps. The intrauterine cavity was suctioned using suction tube size 7. Then [____] endometrial cavity was done. Instruments removed. Hemostasis achieved. The patient tolerated the procedure well and was transferred to the recovery in stable condition. There were no complications regarding this surgery. Dictated By: Winsotn Crews MD /jess/steve /Document#: [id number]
[2017-06-03] MEDS ORDERED: ONDANSETRON 4 MG INJ IV PRN (08:00)
[2017-06-03] MEDS ORDERED: IBUPROFEN 600 MG TAB PO PRN (08:00)
[2017-06-03] MEDS ORDERED: HYDROCODONE/APAP (5/325) TAB PO PRN (08:00)
[2017-06-03] MEDS ORDERED: NACL 0.9% 3 ML SYG IV SCH (08:00)
--- NOTE | 2017-06-03 08:01 | HP ---
Date/Time of Note Date/Time of Note DATE: 06/03/17 TIME: 08:00 Assessment/Plan VTE Prophylaxis VTE Prophylaxis Intervention: ambulation, SCD's Lines/Catheters IV Catheter Type (from Nrsg): Peripheral IV Assessment/Plan Assessment/Plan status post Dc for incomplete sab with hypotension and tachchardia- a admit for transfusion and monitoring HPI/ROS Admit Date/Time Admit Date/Time Hx of Present Illness status post dc for incomplete sab with tachycardia and hyptension PMH/Family/Social Social History Smoking Status: Never smoker Exam/Review of Systems Vital Signs Vitals Vital Signs Date Time Temp Pulse Resp B/P Pulse Ox O2 Delivery O2 Flow Rate FiO2 06/03/17 07:50 98 23 82/50 100 06/03/17 07:38 Room Air 06/03/17 06:05 97.0 06/03/17 05:56 8.0 Intake and Output 06/02/17 06/02/17 06/03/17 15:00 23:00 07:00 Intake Total 600 ml Output Total 100 ml Balance 500 ml Labs Result Diagram: 06/03/17 0615 06/03/17 0125 Medications Medications Current Medications Oxytocin/Lactated Ringer's 500 ml @ 0 mls/hr ONCE PRN IV For Hemorrhage Management; Start 06/03/17 at 05:30 Methylergonovine Maleate (Methergine) 0.2 mg ONCE PRN IM VAGINAL BLEEDING; Start 06/03/17 at 05:30 Carboprost Tromethamine (Hemabate) 250 mcg ONCE PRN IM VAGINAL BLEEDING; Start 06/03/17 at 05:30 Misoprostol (Cytotec) 1,000 mcg ONCE PRN MO VAGINAL BLEEDING; Start 06/03/17 at 05:30 MAHAD FERNANDEZ MD Jun 03, 2017 08:01
[2017-06-03] MEDS: LACTATED RINGER'S 1,000 ML IV SCH ×2 (09:56→15:37)
[2017-06-04 02:06] VITALS: BP 90/51; RESP 20
[2017-06-04 05:43] LABS: BASOPHILS % 0.3 % (0.0-2.0); EOSINOPHILS # 0.1 10^3/ul (0.0-0.5); EOSINOPHILS % 2.1 % (0.0-7.0); HEMATOCRIT 26.3 % (37.0-47.0); HEMOGLOBIN 8.7 g/dl (12.0-16.0); LYMPHOCYTES # 2.9 10^3/ul (0.8-2.9); LYMPHOCYTES % 47.4 % (15.0-51.0); MEAN CORPUSCULAR HEMOGLOBIN 28.9 pg (29.0-33.0); MEAN CORPUSCULAR HGB CONC 33.1 g/dl (32.0-37.0); MEAN CORPUSCULAR VOLUME 87.4 fl (82.0-101.0); MEAN PLATELET VOLUME 10.9 fl (7.4-10.4); MONOCYTE # 0.3 10^3/ul (0.3-0.9); MONOCYTES % 4.6 % (0.0-11.0); NEUTROPHIL # 2.7 10^3/ul (1.6-7.5); NEUTROPHILS % 45.3 % (39.0-77.0); PLATELET COUNT 138 10^3/UL (140-415); RED BLOOD COUNT 3.01 10^6/ul (4.20-5.40); RED CELL DISTRIBUTION WIDTH 14.6 % (11.5-14.5); WHITE BLOOD COUNT 6.1 10^3/ul (4.8-10.8)
[2017-06-04] MEDS: LACTATED RINGER'S 1,000 ML IV SCH ×2 (08:00)
[2017-06-04 08:44] VITALS: BP 88/52; RESP 18
--- NOTE | 2017-06-04 10:39 | DS ---
Date/Time of Note Date/Time of Note DATE: 06/04/17 TIME: 10:28 Discharge Summary Admission/Discharge Info Admit Date/Time June 04, 2017 Hospital visit and discharge note Discharge Date/Time June 04, 2017 Discharge Diagnosis Incomplete . D&C Patient Condition: Good Procedures Dilatation and curettage Hx of Present Illness status post dc for incomplete sab with tachycardia and hyptension Hospital Course This patient is a 37 years old 6 para 4 who was about 6 weeks and was admitted in the emergency room due to incomplete She then underwent a dilatation and curettage yesterday. Her hemoglobin was low when she came to emergency room her H&H was 9.9 hematocrit 1 hour went down to 7.9 due to continuation of bleeding she was given 2 units of packed cell and again today H&H is 8.7. She is now doing well no dizziness no other complaint. Her abdomen is soft. Very minimal vaginal bloody discharge. She was discharged with instruction to rest at home and return in the clinic in 4 weeks for follow-up. She will be taking her iron pill twice a day. She also signed a consent for surgical sterilization that she was very interested in and will be followed later in the clinic and would be performed. ROS Home Meds No Active Prescriptions or Reported Meds Follow-up Plan She will be seen in 4 weeks Primary Care Provider Not On Staff Doctor Pending Labs Laboratory Tests Test 06/04/17 05:27 06/04/17 06:57 White Blood Count 6.110^3/ul (4.8-10.8) Red Blood Count 3.0110^6/ul (4.20-5.40) Hemoglobin 8.7g/dl (12.0-16.0) Hematocrit 26.3% (37.0-47.0) Mean Corpuscular Volume 87.4fl (82.0-101.0) Mean Corpuscular Hemoglobin 28.9pg (29.0-33.0) Mean Corpuscular Hemoglobin Concent 33.1g/dl (32.0-37.0) Red Cell Distribution Width 14.6% (11.5-14.5) Platelet Count 06612^3/UL (140-415) Mean Platelet Volume 10.9fl (7.4-10.4) Neutrophils % 45.3% (39.0-77.0) Lymphocytes % 47.4% (15.0-51.0) Monocytes % 4.6% (0.0-11.0) Eosinophils % 2.1% (0.0-7.0) Basophils % 0.3% (0.0-2.0) Nucleated Red Blood Cells % 0.0/100WBC (0.0-0.0) Neutrophils # 2.710^3/ul (1.6-7.5) Lymphocytes # 2.910^3/ul (0.8-2.9) Monocytes # 0.310^3/ul (0.3-0.9) Eosinophils # 0.110^3/ul (0.0-0.5) Basophils # 0.010^3/ul (0.0-0.1) Nucleated Red Blood Cells # 0.010^3/ul (0.0-0.0) Lab Scanned Report BLOOD [id number] JOSÉ ANTONIO NAIDU MD Jun 04, 2017 10:39
--- NOTE | 2017-06-04 15:46 | LDN ---
Date/Time of Note Date/Time of Note DATE: 06/04/17 TIME: 15:41 Delivery Summary June 04, 2017 The patient is an 19 years old primigravida who was admitted yesterday with rupture of membrane and in labor when she was 39 weeks and 1 day . She progress to complete dilatation under epidural anesthesia with Pitocin augmentation and had an spontaneous vaginal delivery of a female 9 and 9 with 7 lbs. 8 oz. weight per first-degree episiotomy was a estimated blood loss was around 250 cc Placenta Delivered: Spontaneously Meconium: none Episiotomy: No Anesthesia type: Epidural Estimated blood loss: 250 Sponge & Needle done & correct: Yes All needle counts correct: Yes Any foreign bodies felt in the: No Problems: Delivery Information Sex Sex: female Apgars 1 Minute: 9 5 Minute: 9 Suctioning Nose & mouth suctioned at stewart: Yes Delee suction performed: No Umbilical Cord Umbilical cord with: 3 Vessels Cord presentations: nuchal cord Cord Blood was obtained: Yes Mother & Baby Disposition Disposition Mom & Baby to Maternity; Good: Yes Mom transferred to: Med/Surg Baby to NICU: No JOSÉ ANTONIO NAIDU MD Jun 04, 2017 15:46
== END 2017-06-04 11:45 | disposition home or self-care (01) | DRG 770 ==
LOC: E/R 00:52 → SDS 05:04 → MS2 07:55
PROVIDERS: ADMIT Obstetrics & Gynecology; ATTEND Obstetrics & Gynecology
PROC: 30233N1 Transfusion of Nonautologous Red Blood Cells into Peripheral Vein, Percutaneous Approach (ICD-10-PCS; 2017-06-03)
PROC: 10D17ZZ Extraction of Products of Conception, Retained, Via Natural or Artificial Opening (ICD-10-PCS; principal; 2017-06-03 05:30)
DX: O03.1 Delayed or excessive hemorrhage following incomplete spontaneous abortion (principal); I95.9 Hypotension, unspecified; R00.0 Tachycardia, unspecified
CPT/HCPCS: 36415; 36430; 76830; 76856; 80053; 85014; 85018; 85025; 85610; 85730; 86644; 86850; 86900; 86901; 86920; 88305; 96374; 96375; J0690; J1170; J2250; J2270; J2370; J2405; J3010; J7030; J7040; J7120; P9016

== ENCOUNTER 2018-07-16 20:13 | Emergency (ER) | END 2018-07-16 21:25 | disposition left against medical advice (07) ==

== ENCOUNTER 2018-10-17 00:38 | Inpatient (IN) | END 2018-10-18 14:39 | disposition home or self-care (01) | DRG 833 ==

== ENCOUNTER 2018-11-10 18:21 | Inpatient (IN) | payer OTHER ==
[~2018-11-10] VITALS: Ht 160 cm; Wt 76.6 kg
[2018-11-10 18:27] VITALS: Ht 160 cm; Wt 76.6 kg
[2018-11-10] MEDS ORDERED: PNV11TAB PO (18:38)
[2018-11-10] MEDS ORDERED: URSO300C21 PO (18:43)
--- NOTE | 2018-11-10 18:53 | HP ---
Date/Time of Note Date/Time of Note DATE: 11/10/18 TIME: 18:49 OB - History Hx of Present Free Text/Dictation 38 YO with IUP at 37 weeks. she developed classic symptoms of cholestasis of earlier in and she is currently taking Actigall. she is referred her for IOL. EFW is 7 LBS and pelvic is adequate . cervix is long and one cm and -3 Care: Good Care Ultrasounds: Normal mid trimester US Obstetrical Complications: Other (cholestaisis of ) Medical Complications: Other (Gall stones) Past Family/Social History * Past Medical, Surgical, Family and Obstetric Histories reviewed from chart. OB Admission Exam Physical Exam HEENT: WNL Heart: Rhythm Normal Lungs: Clear, Equal Abdomen: WNL Extremities: Normal Reflexes: Normal Cervical Dilatation: 1cm OB Assessment/Plan Other Assessment: IUP 37 weeks Cholestasis of Plan: Induction Induction Method: per Misoprostol Protocol ALFONZO SAXENA MD Nov 10, 2018 18:53
[2018-11-10] MEDS ORDERED: IBUPROFEN 600 MG TAB PO PRN (19:00)
[2018-11-10] MEDS ORDERED: MISOPROSTOL 50 MCG CAPSULE VAG ONE (19:00)
[2018-11-10] MEDS ORDERED: METHYLERGONOVINE 0.2 MG INJ IM PRN (19:00)
[2018-11-10] MEDS ORDERED: CARBOPROST 250 MCG INJ IM PRN (19:00)
[2018-11-10] MEDS ORDERED: LIDOCAINE 1% (MPF) 30 ML INJ INJ PRN (19:00)
[2018-11-10] MEDS ORDERED: AMPICILLIN 2 GM/NS (PMX) 100 ML IV ONE (19:00)
[2018-11-10] MEDS ORDERED: BUTORPHANOL 2 MG INJ IV PRN (19:00)
[2018-11-10] MEDS ORDERED: MISOPROSTOL 200 MCG TAB PR PRN (19:00)
[2018-11-10] MEDS ORDERED: OXYTOCIN 30 UNITS/LR 500 ML IV SCH ×2 (19:00)
[2018-11-10] MEDS ORDERED: OXYTOCIN 30 UNITS/LR 500 ML IV PRN (19:00)
--- NOTE | 2018-11-10 19:08 | TRIAGE ---
OB Triage Datetime Report Generated by CPN: 11/10/2018 19:08 Datetime: 11/10/2018 18:20 Time of Arrival: 11/10/2018 18:20 EGA: 37.0 Arrived By: Ambulatory Arrived From: Office Chief Complaint: CHOLESTASIS Movement: Present Contractions: Denies/Absent (Annotations: Data stored by N on behalf of user) Rupture of Membranes: Denies Vaginal Bleeding: None Vaginal Discharge: Denies Recent Sexual Intercouse: Denies Abdominal Trauma: Not Applicable Patient Complaints: None Datetime: 10/18/2018 13:25 Stage of : Antepartum Pain Presence: None/Denies Pain Assessment Comments: pt. states she wants to d/c home now Datetime: 10/18/2018 13:07 Maternal Assessment Level of Consciousness: Fully Conscious Headache: Denies Blurred Vision: No Respiratory Effort: Unlabored Nausea/Vomiting: Denies RUQ Epigastric Pain: Denies Pain Presence: None/Denies Datetime: 10/18/2018 13:00 Stage of : Antepartum Labor Evaluation Frequency: 0/hr Monitor Mode: External Monitor Mode: External US Datetime: 10/18/2018 10:34 Labor Evaluation Frequency: 0/hr Monitor Mode: External Heart Rate FHR Baseline Rate: 130 Monitor Mode: External US Variability: Moderate 6-25 bpm Accelerations: 15X15 Decelerations: None Datetime: 10/18/2018 10:16 Labor Evaluation Frequency: 0 Monitor Mode: External Resting Tone [place]: Relaxed Heart Rate FHR Baseline Rate: 135 Monitor Mode: External US Variability: Moderate 6-25 bpm Accelerations: 15X15 Decelerations: None Datetime: 10/18/2018 10:01 Monitor Mode: External Resting Tone [place]: Relaxed Monitor Mode: External US Pain Presence: None/Denies Datetime: 10/18/2018 09:55 Pain Presence: None/Denies Pain Assessment Comments: pt. states she wants to go home Datetime: 10/18/2018 08:44 Stage of : Antepartum Temperature Route: Oral Datetime: 10/18/2018 07:22 Stage of : Antepartum Assessment Type: Ongoing Assessment Respiratory Effort: Unlabored Pain Presence: None/Denies Datetime: 10/18/2018 04:27 Temperature Route: Oral Pain Assessment Pain Scale: 0 Datetime: 10/18/2018 00:04 Temperature Route: Oral Pain Assessment Pain Scale: 0 Datetime: 10/17/2018 22:25 Pain Assessment Pain Scale: 0 Datetime: 10/17/2018 21:22 Labor Evaluation Frequency: 0 Monitor Mode: External Heart Rate FHR Baseline Rate: 140 Monitor Mode: External US FHR Baseline Changes: No Baseline Change Variability: Moderate 6-25 bpm Accelerations: 15X15 Decelerations: None Category: Category I Datetime: 10/17/2018 20:29 Comments: NST STARTED Datetime: 10/17/2018 19:42 Temperature Route: Oral Pain Assessment Pain Scale: 0 Datetime: 10/17/2018 18:54 Stage of : Antepartum Datetime: 10/17/2018 17:45 Stage of : Antepartum Datetime: 10/17/2018 14:36 Stage of : Antepartum Temperature Route: Oral Datetime: 10/17/2018 10:54 Stage of : Antepartum Labor Evaluation Frequency: 0 Monitor Mode: External Resting Tone [place]: Relaxed Contraction Comments: abdomen soft on palpation Heart Rate FHR Baseline Rate: 140 Monitor Mode: External US Variability: Moderate 6-25 bpm Accelerations: 15X15 Decelerations: None Category: Category I Pain Assessment Pain Scale: 0 Pain Presence: None/Denies Pain Type: N/A Datetime: 10/17/2018 10:12 Comments: monitors applied Datetime: 10/17/2018 08:00 Assessment Type: Ongoing Assessment Maternal Assessment Level of Consciousness: Fully Conscious DTR's/Clonus: DTRs 2+; No Clonus Headache: Denies Blurred Vision: No Respiratory Effort: Unlabored; Regular Rhythm; Equal Expansion Breath Sounds, Left: Clear and Equal Breath Sounds, Right: Clear and Equal Nausea/Vomiting: Denies RUQ Epigastric Pain: Denies Lower Extremities Edema: None Upper Extremities Edema: None Degree: None Facial Edema: None Fall Risk Assessment History of Falling: (0) No Secondary Diagnosis: (0) No Ambulatory Aid: (0) Bedrest/Nurse Assist IV Therapy: (20) Yes Gait: (0) Normal/Bedrest/Immobile Mental Status: (0) Oriented to Own Ability Fall Score: 20 Fall Risk Score Definition: No Risk: No action required Datetime: 10/17/2018 06:30 Pain Presence: None/Denies Pain Type: N/A Pain Assessment Comments: pr sleeping with even unlabored breathing Datetime: 10/17/2018 04:53 Labor Evaluation Frequency: NONE Monitor Mode: External Resting Tone [place]: Relaxed Contraction Comments: TOCO REMOVED. NST COMPLETED. Heart Rate FHR Baseline Rate: 130 Monitor Mode: External US Variability: Moderate 6-25 bpm Accelerations: 15X15 Decelerations: None Category: Category I Comments: U/S REMOVED. NST COMPLETED. Pain Presence: None/Denies Pain Type: N/A Datetime: 10/17/2018 04:33 Monitor Mode: Palpation Monitor Mode: External US Datetime: 10/17/2018 04:00 Labor Evaluation Frequency: X1 Monitor Mode: External Duration (sec)2399: 50 Quality: Mild Resting Tone [place]: Relaxed Heart Rate FHR Baseline Rate: 130 Monitor Mode: External US Variability: Moderate 6-25 bpm Accelerations: 15X15 Decelerations: None Category: Category I Pain Presence: None/Denies Pain Type: N/A Pain Assessment Comments: PT STATES HER PAIN IS GONE AT THIS TIME Datetime: 10/17/2018 02:57 Monitor Mode: External US Datetime: 10/17/2018 02:42 Assessment Type: Admission Assessment Vaginal Bleeding: None Maternal Assessment Level of Consciousness: Fully Conscious DTR's/Clonus: DTRs 2+; No Clonus Headache: Denies Blurred Vision: No Respiratory Effort: Unlabored; Regular Rhythm; Equal Expansion Breath Sounds, Left: Clear and Equal Breath Sounds, Right: Clear and Equal Nausea/Vomiting: Denies RUQ Epigastric Pain: Denies Facial Edema: None Fall Risk Assessment History of Falling: (0) No Secondary Diagnosis: (0) No Ambulatory Aid: (0) Bedrest/Nurse Assist IV Therapy: (0) No Gait: (0) Normal/Bedrest/Immobile Mental Status: (0) Oriented to Own Ability Fall Score: 0 Fall Risk Score Definition: No Risk: No action required Datetime: 10/17/2018 02:40 Assessment Type: Admission Assessment Arrived By: Wheelchair Arrived From: Emergency Dept Vaginal Bleeding: None Maternal Assessment Level of Consciousness: Fully Conscious Maternal Assessment Level of Consciousness: Fully Conscious DTR's/Clonus: DTRs 2+; No Clonus DTR's/Clonus: DTRs 2+; No Clonus Headache: Denies Headache: Denies Blurred Vision: No Blurred Vision: No Respiratory Effort: Unlabored; Regular Rhythm; Equal Expansion Breath Sounds, Left: Clear and Equal Breath Sounds, Right: Clear and Equal Nausea/Vomiting: Denies RUQ Epigastric Pain: Denies Facial Edema: None Fall Risk Assessment History of Falling: (0) No Secondary Diagnosis: (0) No Ambulatory Aid: (0) Bedrest/Nurse Assist IV Therapy: (0) No Gait: (0) Normal/Bedrest/Immobile Mental Status: (0) Oriented to Own Ability Fall Score: 0 Fall Risk Score Definition: No Risk: No action required Contraction Comments: pt denies cramping Pain Type: N/A Pain Location: Abdomen Vaginal Exam Membrane Status: Intact Datetime: 10/16/2018 22:16 Stage of : Antepartum
[2018-11-10] MEDS: LACTATED RINGER'S 1,000 ML IV SCH (20:29)
[2018-11-10] MEDS: URSODIOL 300 MG CAP PO SCH (21:22)
[2018-11-10] MEDS: MISOPROSTOL 50 MCG CAPSULE PO PRN (21:22)
[2018-11-10] MEDS ORDERED: AMPICILLIN 1 GM/NS (PMX) 50 ML IV SCH (23:00)
[2018-11-11] MEDS: MISOPROSTOL 50 MCG CAPSULE PO PRN ×5 (01:54→20:06)
[2018-11-11] MEDS: LACTATED RINGER'S 1,000 ML IV SCH ×4 (03:13→21:51)
[2018-11-11] MEDS: URSODIOL 300 MG CAP PO SCH ×3 (10:10→22:21)
--- NOTE | 2018-11-11 20:02 | QN ---
Documentation Comment NST is category one cervix is 1 cm had 5 doses of Cytotec ALFONZO SAXENA MD Nov 11, 2018 20:02
--- NOTE | 2018-11-11 21:32 | PREAC ---
Date/Time of Note Date/Time of Note DATE: 11/11/18 TIME: 21:31 Anesthesia Eval and Record Evaluation Time Pre-Procedure Interview DATE: 11/11/18 TIME: 21:31 Age 38 Sex female NPO: 8 hrs Preoperative diagnosis labor pain Planned procedure epidural Past Medical History Past Medical History: Includes GI: Other (cholestasis ) Surgery & Anesthesia Issues No known issue Meds Anticoagulation: No Beta Earline within 24 hr: No Reason Beta Earline not given: Pt. not on B-Earline Reported Medications Ursodiol* (Actigall*) 300 Mg Cap, 300 MG PO TID, #90 CAP 11/10/18 [id number] ( 19) 1 Each Tablet, 1 TAB PO DAILY, TAB 11/10/18 Current Medications Lactated Ringer's 1,000 ml @ 125 mls/hr Q8H IV Last administered on 11/11/18at 18:48; Admin Dose 125 MLS/HR; Start 11/10/18 at 19:00 Butorphanol Tartrate (Stadol) 2 mg Q2H PRN IV PAIN Last administered on 11/11/18at 06:20; Admin Dose 2 MG; Start 11/10/18 at 19:00 Lidocaine (Xylocaine 1% (Mpf)) 30 ml ONCE PRN INJ EPISIOTOMY; Start 11/10/18 at 19:00 Oxytocin/Lactated Ringer's 500 ml @ 500 mls/hr ONCE POST IV ; Start 11/10/18 at 19:00 Oxytocin/Lactated Ringer's 500 ml @ 125 mls/hr POST IV ; Start 11/10/18 at 19:00 Ibuprofen (Motrin) 600 mg ONCE PRN PO PAIN LEVEL 1-5; Start 11/10/18 at 19:00 Oxytocin/Lactated Ringer's 500 ml @ 0 mls/hr ONCE PRN IV VAGINAL BLEEDING; Start 11/10/18 at 19:00 Methylergonovine Maleate (Methergine) 0.2 mg ONCE PRN IM VAGINAL BLEEDING; Start 11/10/18 at 19:00 Carboprost Tromethamine (Hemabate) 250 mcg ONCE PRN IM VAGINAL BLEEDING; Start 11/10/18 at 19:00 Misoprostol (Cytotec) 1,000 mcg ONCE PRN [place] VAGINAL BLEEDING; Start 11/10/18 at 19:00 Oxytocin/Lactated Ringer's 500 ml @ 0 mls/hr FOR AUGMENTATION IV ; Start 11/10/18 at 19:00 Ursodiol (Actigall) 300 mg TID PO Last administered on 11/11/18at 14:11; Admin Dose 300 MG; Start 11/10/18 at 21:00 Misoprostol (Cytotec 50 Mcg Capsule) 50 mcg Q4H PRN PO CERVICAL RIPENING Last administered on 11/11/18at 20:06; Admin Dose 50 MCG; Start 11/10/18 at 21:00 Meds reviewed: Yes Allergies Coded Allergies: No Known Allergy (Verified , 11/11/18) Allergies Reviewed: Yes Labs/Studies Labs Reviewed: Reviewed by anesthesiologist Result Diagram: 11/10/181939 test: N/A Pre-procedure Exam Airway: Adequate mouth opening, Adequate thyromental dist Mallampati: Mallampati III Teeth: Normal Lung: Normal Heart: Normal ASA Physical Status ASA physical status: 2 Emergency: None Pre-operative Attestations Prior to commencing anesthesia and surgery, the patient was re-evaluated, there was verification of: *The patient's identity *The results of appropriate recent lab work and preoperative vital signs *The above evaluation not changing prior to induction *Anesthetic plan, risk benefits, alternative and complications discussed with patient/family; questions answered; patient/family understands, accepts and wishes to proceed. SHUKRI CEDEÑO DO Nov 11, 2018 21:32
[2018-11-11] MEDS ORDERED: FENTAnyl 2MCG/ML-ROPIV 0.2% 100 ML ONE (21:47)
[2018-11-11] MEDS ORDERED: NALOXONE (0.4 MG/ML) INJ IV PRN (22:00)
[2018-11-11] MEDS ORDERED: FENTAnyl 2MCG/ML-ROPIV 0.2% 100 ML BAG EPI SCH (22:00)
[2018-11-12] VITALS (22 sets, daily range): BP systolic 80–113; BP diastolic 46–73; PULSE 62–79; RESP 8–30
[2018-11-12] MEDS ORDERED: OXYTOCIN 30 UNITS/LR 500 ML IV SCH
[2018-11-12] MEDS: OXYTOCIN 30 UNITS/LR 500 ML IV SCH ×2 (01:46→03:27)
--- NOTE | 2018-11-12 03:58 | DELSUM ---
Delivery Summary A-C Datetime Report Generated by CPN: 11/12/2018 03:58 DELIVERY PERSONNEL Area Supervisor: Healy, Amber MATERNAL INFORMATION Delivery Anesthesia: Epidural Medications in Delivery: 30 UNIT PITOCIN Delivery QBL (ml): 100 Placenta Cultured: No Maternal Complications: Other Other Maternal Complications: CHOLESTASIS LABOR SUMMARY EDC: 12/01/2018 00:00 No. Babies in Womb: 1 Attempted: No Labor Anesthesia: Epidural LABOR INFORMATION Reason for Induction: Other Reason for Induction- Other: CHOLESTASIS Onset of Labor: 11/11/2018 22:32 Complete Dilatation: 11/12/2018 03:04 Cervical Ripening Agents: Cytotec @ Cervical Ripening Agents: Cytotec @ 50 Cervical Ripening Agents: Cytotec @ (Annotations: 50MCG (DOSE #3)) Cervical Ripening Agents: Cytotec @ 50 Cervical Ripening Agents: Cytotec @ (Annotations: 50MCG (DOSE #1)) Oxytocin: Induction Group B Beta Strep: Negative Group B Beta Strep: Not Done Antibiotics # of Doses: 0 Steroids Given: None Reason Steroids Not Administered: Not Applicable MEMBRANES Membranes Rupture Method: Spontaneous Rupture of Membranes: 11/12/2018 03:04 Length of Rupture (hr): 0.22 Amniotic Fluid Color: Clear Amniotic Fluid Amount: Large Amniotic Fluid Odor: None STAGES OF LABOR Stage 1 hr: 4 Stage 1 min: 32 Stage 2 hr: 0 Stage 2 min: 13 Stage 3 hr: 0 Stage 3 min: 3 Total Time in Labor hr: 4 Total Time in Labor min: 48 VAGINAL DELIVERY Episiotomy: None Laceration Extension: N/A Laceration Type: None Laceration Repair: Not Applicable Initial Vag Sponge Count: 10 Final Vag Sponge Count: 10 Initial Vag Sharps Count: 1 Final Vag Sharps Count: 1 Sponge Count Correct: Yes; Vaginal Sweep Performed Sharps Count Correct: Yes BABY A INFORMATION Infant Delivery Date/Time: 11/12/2018 03:17 Method of Delivery: Vaginal Born in Route : No : N/A Forceps: N/A Vacuum Extraction: N/A Shoulder Dystocia : N/A SHOULDER DYSTOCIA BABY A Delivery Date/Time: 11/12/2018 03:17 PRESENTATION/POSITION BABY A Presentation: Cephalic Cephalic Presentation: Vertex Vertex Position: Left Occipital Anterior Breech Presentation: N/A PLACENTA INFORMATION BABY A Placenta Delivery Time : 11/12/2018 03:20 Placenta Method of Delivery: Spontaneous Placenta Status: Delivered SCORES BABY A Heart Rate 1 min: >100 bpm Resp Effort 1 min: Good Cry Reflex Irritability 1 min: Cough/Sneeze/Pulls Away Muscle Tone 1 min: Active Motion Color 1 min: Blue/Pale Resuscitation Effort 1 min: Tactile Stimulation SCORE 1 MIN: 8 Heart Rate 5 min: >100 bpm Resp Effort 5 min: Good Cry Reflex Irritability 5 min: Cough/Sneeze/Pulls Away Muscle Tone 5 min: Active Motion Color 5 min: Body Clever, Extremit Blue Resuscitation Effort 5 min: Tactile Stimulation SCORE 5 MIN: 9 INFORMATION BABY A Gestational Age at Delivery: 37.2 Gestational Status: Early Term- 37- 38.6 Weeks Infant Outcome : Liveborn Infant Condition : Stable Infant Sex: Female IDENTIFICATION/MEDS BABY A ID Band Number: [id number] ID Band Location: Right Leg; Left Arm Sensor Applied: Yes Sensor Number: [id number] Sensor Location : Cord Clamp Vitamin K Given : Not Given Erythromycin Given: Not Given WEIGHT/LENGTH BABY A Birthweight (gm): 2865 Infant Weight (lb): 6 Weight (oz): 5 Infant Length (in): 18.00 Infant Length (cm): 45.72 CORD INFORMATION BABY A No. Cord Vessels: 3 Nuchal Cord : Around Neck x1, Tight Cord Blood Taken: Yes Suction: Mouth; Nose ASSESSMENT BABY A Infant Complications: None Physical Findings at Delivery: Within Normal Limits Infant Respirations: Grunting Tar Leveler/ALS Called : No Care By: Sandra CRAVEN Transferred To: Remains with Mother
[2018-11-12] MEDS ORDERED: DEXTROSE 5%-LR 1,000 ML IV SCH (04:14)
[2018-11-12] MEDS ORDERED: LACTATED RINGER'S 1,000 ML IV* SCH (04:14)
--- NOTE | 2018-11-12 04:19 | LDN ---
Date/Time of Note Date/Time of Note DATE: 11/12/18 TIME: 04:16 Delivery Summary 38-year old with single intrauterine at 37 weeks and 2 days with cholestasis delivered viable female over intact perineum. Nose and mouth suctioned. There was nuchal cord x1 which clamped and cut. Rest of body delivered. Baby given to the nurse. Placenta delivered in intact and spontaneously with three-vessel cord. Patient tolerated procedure well. Weight 2865 g High 18 inches 8 at 1 minutes and 9 at 5 minutes EBL 150 mm Weeks of Gestation 37 weeks and 2 days Placenta Delivered: Spontaneously Meconium: none Episiotomy: No Anesthesia type: Epidural Estimated blood loss: 150 Sponge & Needle done & correct: Yes All needle counts correct: Yes Any foreign bodies felt in the: No Delivery Information Sex Infant Sex: female Apgars 1 Minute: 8 5 Minute: 9 10 Minute: 10 Suctioning Nose & mouth suctioned at stewart: No Umbilical Cord Umbilical cord with: 3 Vessels Cord presentations: nuchal cord Nuchal cord present X: 1 Cord Blood was obtained: Yes Mother & Baby Disposition Disposition Mom & Baby to Maternity; Good: Yes NICK HOROWITZ Nov 12, 2018 04:19
[2018-11-12] MEDS ORDERED: ACETAMINOPHEN 325 MG TAB PO PRN (04:30)
[2018-11-12] MEDS ORDERED: DIBUCAINE 1% 30 GM OINT TOP PRN (04:30)
[2018-11-12] MEDS ORDERED: CARBOPROST 250 MCG INJ IM PRN (04:30)
[2018-11-12] MEDS ORDERED: WITCH HAZEL/GLYCERIN PAD PR PRN (04:30)
[2018-11-12] MEDS ORDERED: DIPHENHYDRAMINE 50 MG INJ IV PRN ×2 (04:30→13:30)
[2018-11-12] MEDS ORDERED: METHYLERGONOVINE 0.2 MG INJ IM PRN (04:30)
[2018-11-12] MEDS ORDERED: ONDANSETRON 4 MG INJ IV PRN ×2 (04:30→13:30)
[2018-11-12] MEDS ORDERED: OXYTOCIN 30 UNITS/LR 500 ML IV PRN (04:30)
[2018-11-12] MEDS ORDERED: BENZOCAINE 20% 56 ML SPRAY TOP PRN (04:30)
[2018-11-12] MEDS ORDERED: ZOLPIDEM 5 MG TAB PO PRN (04:30)
[2018-11-12] MEDS ORDERED: MISOPROSTOL 200 MCG TAB PR PRN (04:30)
[2018-11-12] MEDS ORDERED: LANOLIN HPA 1 PKT TOP PRN (04:30)
[2018-11-12] MEDS ORDERED: SENNA/DOCUSATE NA (8.6MG/50MG) TAB PO PRN (04:30)
[2018-11-12] MEDS: IBUPROFEN 600 MG TAB PO SCH ×4 (05:58→23:51)
[2018-11-12] MEDS ORDERED: EPHEDrine SULFATE 50 MG/5 ML SYG ONE (07:00)
[2018-11-12] MEDS: URSODIOL 300 MG CAP PO SCH ×3 (09:33→21:22)
--- NOTE | 2018-11-12 13:05 | PREAC ---
Date/Time of Note Date/Time of Note DATE: 11/12/18 TIME: 13:03 Anesthesia Eval and Record Evaluation Time Pre-Procedure Interview DATE: 11/12/18 TIME: 13:03 Age 38 Sex female NPO: 8 hrs Preoperative diagnosis desired sterilization Planned procedure bilateral tubal ligation Past Medical History Past Medical History: Includes GI: Other (cholestasis) Surgery & Anesthesia Issues No known issue Meds Anticoagulation: No Beta Earline within 24 hr: No Reason Beta Earline not given: Pt. not on B-Earline Reported Medications Ursodiol* (Actigall*) 300 Mg Cap, 300 MG PO TID, #90 CAP 11/10/18 [id number] ( 19) 1 Each Tablet, 1 TAB PO DAILY, TAB 11/10/18 Current Medications Ursodiol (Actigall) 300 mg TID PO Last administered on 11/12/18at 09:33; Admin Dose 300 MG; Start 11/10/18 at 21:00 Lactated Ringer's 1,000 ml @ 125 mls/hr Q8H IV* ; Start 11/12/18 at 04:14 Ibuprofen (Motrin) 600 mg Q6 PO Last administered on 11/12/18at 05:58; Admin Dose 600 MG; Start 11/12/18 at 06:00 Acetaminophen (Tylenol Tab) 650 mg Q4H PRN PO PAIN LEVEL 1-5; Start 11/12/18 at 04:30 Oxycodone/Aspirin (Percodan) 1 tab Q3H PRN PO PAIN LEVEL 1-5; Start 11/12/18 at 04:30 Ondansetron HCl (Zofran Inj) 4 mg Q6H PRN IV NAUSEA AND/OR VOMITING; Start 11/12/18 at 04:30 Diphenhydramine HCl (Benadryl) 25 mg Q6H PRN IV PRURITUS; Start 11/12/18 at 04:30 Zolpidem Tartrate (Ambien) 5 mg QHS PRN PO INSOMNIA; Start 11/12/18 at 04:30 Senna/Docusate Sodium (Senokot-S) 1 tab BID PRN PO CONSTIPATION; Start 11/12/18 at 04:30 Witch Tonya/ Glycerin (Tucks Pads) 1 pad BEDSIDE MEDICATION PRN SD HEMORRHOID/EPISIOTMY PAIN Last administered on 11/12/18at 05:59; Admin Dose 1 PAD; Start 11/12/18 at 04:30 Benzocaine (Dermoplast [place]) 1 spray BEDSIDE MEDICATION PRN TOP HEMORRHOID/EPISIOTMY PAIN; Start 11/12/18 at 04:30 Dibucaine (Nupercainal) 1 applic BEDSIDE MEDICATION PRN TOP HEMORRHO ID/EPISIOTMY PAIN; Start 11/12/18 at 04:30 Lanolin (Lanolin Hpa) 1 applic BEDSIDE MEDICATION PRN TOP BEDSIDE FOR INGRID TO NIPPLES Last administered on 11/12/18at 05:59; Admin Dose 1 APPLIC; Start at 04:30 Measles/Mumps/ Rubella Vaccine Live (Mmr Ii Vaccine) 0.5 ml ONCE ONCE SC* ; Start 11/14/18 at 09:00; Stop 11/14/18 at 09:01 Diphtheria/ Tetanus/Acell Pertussis (Adacel) 0.5 ml ONCE ONCE IM* ; Start 11/14/18 at 09:00; Stop 11/14/18 at 09:01 Oxytocin/Lactated Ringer's 500 ml @ 0 mls/hr ONCE PRN IV VAGINAL BLEEDING; Start 11/12/18 at 04:30 Methylergonovine Maleate (Methergine) 0.2 mg ONCE PRN IM VAGINAL BLEEDING; Start 11/12/18 at 04:30 Carboprost Tromethamine (Hemabate) 250 mcg ONCE PRN IM VAGINAL BLEEDING; Start 11/12/18 at 04:30 Misoprostol (Cytotec) 1,000 mcg ONCE PRN [place] VAGINAL BLEEDING; Start 11/12/18 at 04:30 Meds reviewed: Yes Allergies Coded Allergies: No Known Allergy (Verified , 11/11/18) Allergies Reviewed: Yes Labs/Studies Labs Reviewed: Reviewed by anesthesiologist Result Diagram: 11/10/181939 test: N/A Pre-procedure Exam Last vitals Vital Signs Date Temp Pulse Resp B/P (MAP) Pulse Ox O2 O2 Flow FiO2 Time Delivery Rate 11/12/18 98.0 71 17 87/53 (64) Room Air 12:00 Airway: Adequate mouth opening, Adequate thyromental dist Mallampati: Mallampati II Teeth: Normal Lung: Normal Heart: Normal ASA Physical Status ASA physical status: 2 Emergency: None Planned Anesthetic Neuraxial: Spinal Planned Pain Management Parenteral pain med Pre-operative Attestations Prior to commencing anesthesia and surgery, the patient was re-evaluated, there was verification of: *The patient's identity *The results of appropriate recent lab work and preoperative vital signs *The above evaluation not changing prior to induction *Anesthetic plan, risk benefits, alternative and complications discussed with patient/family; questions answered; patient/family understands, accepts and wishes to proceed. NADYA MONDRAGON MD Nov 12, 2018 13:05
--- NOTE | 2018-11-12 13:19 | HP ---
Date/Time of Note Date/Time of Note DATE: 11/12/18 TIME: 13:14 Assessment/Plan VTE Prophylaxis Risk score (from Ns)>0 risk: 1 SCD applied (from Ns): Yes Pharmacological prophylaxis: NA/contraindicated Pharm contraindication: low risk/ambulating Lines/Catheters IV C[facility] Type [facility]from [facility] Saline Lock Assessment/Plan Result Diagram: 11/10/180 HPI/ROS Admit Date/Time Admit Date/Time Nov 10, 2018 at 18:50 Hx of Present Illness 38 YO Ectopic1 who is s/p earlier today. patient is requesting permanent sterilization. Risks and benefits and indications and alternatives discussed patients. risks including but not limited to infection, bleeding, damage to other organs such as intestines or bladder, blood transfusion and possibility of failure of procedure discussed with patient. I also explained to her this procedures is permanent and not reversible. other reversible contraceptive methods also discussed with patient. patient also told that our plan is mini-lap BTL, but some times the surgery may be converted to Exploratory Laparotomy. Informed consent obtained Allergies: NKDA Medications: see MAR ROS: Significant as above Review of Systems: Constitutional: Denies nausea, vomiting, Fever, Chills, weight loss Eyes: denies pain, discharge or redness Nose: denies pain or bleeding Respiratory: denies SOB, cough or wheezing Cardiovascular: denies chest pain, palpitations or lightheadedness Gastrointestinal: Denies nausea, vomiting, blood in stool Genitourinary: Denies hematuria, dysuria, or flank pain Musculoskeletal: Denies joint pain or swelling Skin: Denies rash, erythema or laceration Neuro: Denies confusion, seizure, headache or diziness Endocrine: Denies excessive urination or drinking Past Medical History: none Past Surgical History: Ectopic Physical Exam: Afebrile, VSS NAD A&O Heart: RRR Lung: CTA B Abdomen: Soft, Not tender, fundus firm at umbilicus pelvic: mild lochia Extremities: No edema Assessment: Patients desires permanent sterilization Plan: mini lap BTL, Possible Exploratory Laparotomy. PMH/Family/Social Past Medical History Medications Current Medications Ursodiol (Actigall) 300 mg TID PO Last administered on 11/12/18at 09:33; Admin Dose 300 MG; Start 11/10/18 at 21:00 Lactated Ringer's 1,000 ml @ 125 mls/hr Q8H IV* ; Start 11/12/18 at 04:14 Ibuprofen (Motrin) 600 mg Q6 PO Last administered on 11/12/18at 05:58; Admin Dose 600 MG; Start 11/12/18 at 06:00 Acetaminophen (Tylenol Tab) 650 mg Q4H PRN PO PAIN LEVEL 1-5; Start 11/12/18 at 04:30 Oxycodone/Aspirin (Percodan) 1 tab Q3H PRN PO PAIN LEVEL 1-5; Start 11/12/18 at 04:30 Ondansetron HCl (Zofran Inj) 4 mg Q6H PRN IV NAUSEA AND/OR VOMITING; Start 11/12/18 at 04:30 Diphenhydramine HCl (Benadryl) 25 mg Q6H PRN IV PRURITUS; Start 11/12/18 at 04:30 Zolpidem Tartrate (Ambien) 5 mg QHS PRN PO INSOMNIA; Start 11/12/18 at 04:30 Senna/Docusate Sodium (Senokot-S) 1 tab BID PRN PO CONSTIPATION; Start 11/12/18 at 04:30 Witch Tonya/ Glycerin (Tucks Pads) 1 pad BEDSIDE MEDICATION PRN ME HEMORRHOID/EPISIOTMY PAIN Last administered on 11/12/18at 05:59; Admin Dose 1 PAD; Start 11/12/18 at 04:30 Benzocaine (Dermoplast [place]) 1 spray BEDSIDE MEDICATION PRN TOP HEMORRHOID/EPISIOTMY PAIN; Start 11/12/18 at 04:30 Dibucaine (Nupercainal) 1 applic BEDSIDE MEDICATION PRN TOP HEMORRHOID/EPISIOTMY PAIN; Start 11/12/18 at 04:30 Lanolin (Lanolin Hpa) 1 applic BEDSIDE MEDICATION PRN TOP BEDSIDE FOR INGRID TO NIPPLES Last administered on 11/12/18at 05:59; Admin Dose 1 APPLIC; Start 11/12/18 at 04:30 Measles/Mumps/ Rubella Vaccine Live (Mmr Ii Vaccine) 0.5 ml ONCE ONCE SC* ; Start 11/14/18 at 09:00; Stop 11/14/18 at 09:01 Diphtheria/ Tetanus/Acell Pertussis (Adacel) 0.5 ml ONCE ONCE IM* ; Start 11/14/18 at 09:00; Stop 11/14/18 at 09:01 Oxytocin/Lactated Ringer's 500 ml @ 0 mls/hr ONCE PRN IV VAGINAL BLEEDING; Start 11/12/18 at 04:30 Methylergonovine Maleate (Methergine) 0.2 mg ONCE PRN IM VAGINAL BLEEDING; Start 11/12/18 at 04:30 Carboprost Tromethamine (Hemabate) 250 mcg ONCE PRN IM VAGINAL BLEEDING; Start 11/12/18 at 04:30 Misoprostol (Cytotec) 1,000 mcg ONCE PRN ME VAGINAL BLEEDING; Start 11/12/18 at 04:30 Hydromorphone HCl (Dilaudid) 0.2 mg PACU PRN IV MILD PAIN LEVEL 1-3; Start 11/12/18 at 13:30; Status UNV Hydromorphone HCl (Dilaudid) 0.4 mg PACU PRN IV MODERATE PAIN LEVEL 4-6; Start 11/12/18 at 13:30; Status UNV Hydromorphone HCl (Dilaudid) 0.6 mg PACU PRN IV SEVERE PAIN LEVEL 7-10; Start 11/12/18 at 13:30; Status UNV Fentanyl (Sublimaze) 25 mcg PACU ORDER PRN IV MILD PAIN LEVEL 1-3; Start 11/12/18 at 13:30; Status UNV Fentanyl (Sublimaze) 50 mcg PACU ORDER PRN IV MODERATE PAIN LEVEL 4-6; Start 11/12/18 at 13:30; Status UNV Fentanyl (Sublimaze) 75 mcg PACU ORDER PRN IV SEVERE PAIN LEVEL 7-10; Start 11/12/18 at 13:30; Status UNV Ondansetron HCl (Zofran Inj) 4 mg PACU ORDER PRN IV NAUSEA AND/OR VOMITING; Start 11/12/18 at 13:30; Status UNV Prochlorperazine (Compazine Inj) 5 mg PACU ORDER PRN IV NAUSEA AND/OR VOMITING; Start 11/12/18 at 13:30; Status UNV Meperidine HCl (Demerol) 25 mg PACU ORDER PRN IV POST OPERATIVE SHIVERING; Start 11/12/18 at 13:30; Status UNV Diphenhydramine HCl (Benadryl) 25 mg PACU ORDER PRN IV PRURITUS; Start 11/12/18 at 13:30; Status UNV Coded Allergies: No Known Allergy (Verified , 11/11/18) Past Surgical History Past Surgical Hx: no surgical history Family History Significant Family History: no pertinent family hx Social History Smoking Status: Never smoker Exam/Review of Systems Vital Signs Vitals Vital Signs Date Temp Pulse Resp B/P (MAP) Pulse Ox O2 O2 Flow FiO2 Time Delivery Rate 11/12/18 98.0 71 17 87/53 (64) Room Air 12:00 Intake and Output 11/11/18 11/11/18 11/12/18 1515:00 23:00 07:00 IntakeIntake Total 725 ml 2000 ml 1100 ml OutputOutput Total 600 ml 800 ml 800 ml BalanceBalance 125 ml 1200 ml 300 ml ALFONZO SAXENA MD Nov 12, 2018 13:19
[2018-11-12] MEDS ORDERED: MIDAZOLAM 1 MG/ML 2 ML INJ ONE ×2 (13:26→14:04)
[2018-11-12] MEDS ORDERED: FENTAnyl 50 MCG/ML VIAL ONE ×2 (13:26→13:59)
[2018-11-12] MEDS ORDERED: PROCHLORPERAZINE 10 MG INJ IV PRN (13:30)
[2018-11-12] MEDS ORDERED: HYDROmorphONE 1 MG/5 ML IV SYRINGE IV PRN ×3 (13:30)
[2018-11-12] MEDS ORDERED: FENTAnyl 50 MCG/ML VIAL IV PRN ×3 (13:30)
[2018-11-12] MEDS ORDERED: MEPERIDINE 25 MG INJ IV PRN (13:30)
[2018-11-12] MEDS ORDERED: CEFAZOLIN 1 GM INJ ONE (13:41)
--- NOTE | 2018-11-12 14:26 | PAC ---
Date/Time of Note Date/Time of Note DATE: 11/12/18 TIME: 14:25 Post-Anesthesia Notes Post-Anesthesia Note Last documented vital signs Vital Signs Date Temp Pulse Resp B/P (MAP) Pulse Ox O2 O2 Flow FiO2 Time Delivery Rate 11/12/18 98.0 71 17 87/53 (64) Room Air 12:00 Activity: WNL Respiratory function: WNL Cardiovascular function: WNL Mental status: Baseline Pain reasonably controlled: Yes Hydration appropriate: Yes Nausea/Vomiting absent: Yes Comments BP: 90/58 HR: 75 RR: 15 T: 98 SaO2: 96% NADYA ESPINOZA MD Nov 12, 2018 14:26
[2018-11-12] MEDS ORDERED: EPHEDrine SULFATE 50 MG/5 ML SYG IV PRN (14:30)
--- NOTE | 2018-11-12 14:50 | OPR ---
Date/Time of Note Date/Time of Note DATE: 11/12/18 TIME: 14:43 Operative Report Procedure Date: Nov 12, 2018 Preoperative Diagnosis Desires bilateral tubal sterilization Postoperative Diagnosis same Operation/Procedure Performed bilateral tubal sterilization Surgeon see signature line Resource Conservation Manager none Anesthesia Type: spinal Estimated Blood Loss: minimal Transfusion none Specimen segments of bilateral tubes Grafts/Implants none Tubes/Drains christopher Complications none Pt Condition Post Procedure: stable Disposition: PACU Procedure Description FINDINGS: Normal right tube. Normal ovaries bilaterally. left tube was absent, but some fimbriated end of tube was visualized. DESCRIPTION OF PROCEDURE: She was taken to operating room and general anesthesia was induced. She was prepped and draped in the usual sterile fashion in supine position. Surgical time-out was done. A periumbilical incision was made with knife and taken down in layers under direct visualization. Fascia was cut and peritoneum was entered bluntly. Right tube was identified and grasped with [place] clamp. 5 cm distal end of tube was ligated 3 times with O plain tie. the ligated portion was cut and sent to pathology. left tube was absent, but some fimbriated end of tube was visualized. This part of left tube was ligated 3 times with O plain tie. the ligated portion was cut and sent to pathology. there was no bleeding from the tubes. Fascia was closed with # 1 Vicryl. Skin closed using 4-0 Monocryl. Patient tolerated the procedure well. patient was alert and oriented. I explained the intra-op findings. I told her that she needs to obtain her operative note from her Ectopic surgery to make sure the left tube was already removed. otherwise she can not rely on this surgery and needs to use other method of contraception. ALFONZO SAXENA MD Nov 12, 2018 14:50
[2018-11-12] MEDS ORDERED: KETOROLAC 30 MG INJ IV PRN (16:00)
[2018-11-12] MEDS ORDERED: OXYCODONE/ASPIRIN (4.88/325) TAB PO PRN (16:00)
[2018-11-12] MEDS: OXYCODONE/ASPIRIN (4.88/325) TAB PO PRN (16:10)
[2018-11-12] MEDS: SOD CHLORIDE 0.9% 1,000 ML IV SCH (17:38)
[2018-11-13] MEDS: SOD CHLORIDE 0.9% 1,000 ML IV SCH
[2018-11-13 03:50] VITALS: BP 83/58; PULSE 78; RESP 19
[2018-11-13] MEDS: OXYCODONE/ASPIRIN (4.88/325) TAB PO PRN ×2 (05:01→11:00)
[2018-11-13] MEDS: IBUPROFEN 600 MG TAB PO SCH ×2 (05:57→12:09)
--- NOTE | 2018-11-13 07:45 | DS ---
Date/Time of Note Date/Time of Note DATE: 11/13/18 TIME: 07:43 Obstetrical Discharge Record Final Diagnosis Final Diagnosis: Term delivered Vaginal Delivery Obstetrical Delivery: Spontaneous, Bilateral Tubal Ligation Complications Other (Cholestasis) Augmentation: Yes Induction: Yes Rupture of Membranes: No Condition on Discharge Physical Assessment Voiding: Yes Bowel Movement: Yes Breast: Soft, non-tender, Filling Fundus: Firm Abdomen and Incision: soft, appropriate tender Calf Tenderness: No Patient Condition: Good ALFONZO SAXENA MD Nov 13, 2018 07:44
[2018-11-13 08:25] VITALS: BP 80/52; PULSE 64; RESP 16
[2018-11-13] MEDS: URSODIOL 300 MG CAP PO SCH (09:52)
[2018-11-14] MEDS ORDERED: DIPHTH/TET/ACEL PERTUSS (ADULT) 0.5 ML VIAL IM* ONE (09:00)
[2018-11-14] MEDS ORDERED: MEASLES,MUMPS,RUBELLA VACCINE INJ SC* ONE (09:00)
== END 2018-11-13 14:51 | disposition home or self-care (01) | DRG 798 ==
LOC: OBT 18:21 → L-D 18:23 → OBT 18:50 → PP1 11-12 05:23
PROVIDERS: ADMIT Specialist; ATTEND Specialist
PROC: 0U570ZZ Destruction of Bilateral Fallopian Tubes, Open Approach (ICD-10-PCS; 2018-11-12)
PROC: 3E033VJ Introduction of Other Hormone into Peripheral Vein, Percutaneous Approach (ICD-10-PCS; 2018-11-12)
PROC: 6A550ZT Pheresis of Cord Blood Stem Cells, Single (ICD-10-PCS; 2018-11-12)
PROC: 10E0XZZ Delivery of Products of Conception, External Approach (ICD-10-PCS; principal; 2018-11-12 13:00)
DX: O99.62 Diseases of the digestive system complicating childbirth (principal); Z37.0 Single live birth; K80.20 Calculus of gallbladder without cholecystitis without obstruction; Z3A.37 37 weeks gestation of pregnancy
CPT/HCPCS: 62319; 76815; 85025; 85610; 85730; 86592; 86850; 86900; 86901; 87340; 88302; 90686; G0463; J0595; J0690; J1170; J2250; J2405; J2590; J3010; J7030; J7120; J7121